=== PATIENT | male | born 1935 | race African-American/Black ===

== ENCOUNTER 2021-09-23 17:02 | Inpatient (IN) | payer OTHER ==
[~2021-09-23] VITALS: Ht 182.9 cm; Wt 91.2 kg
[2021-09-23 19:38] LABS: BG BASE EXCESS -7.6 mmol/L (-2.0-2.0); BG CARBOXYHEMOGLOBIN 0.3 % (0.5-1.5); BG DEOXYHEMOGLOBIN 3.9 % (0.0-5.0); BG FRACTION INSPIRED OXYGEN 40; BG HCO3 ACT 19.6 mmol/L (22.0-26.0); BG METHEMOGLOBIN 0.3 % (0.0-1.5); BG OXYGEN SATURATION 96.1 % (92.0-98.5); BG OXYHEMOGLOBIN 95.5 % (94.0-97.0); BG PCO2 45.6 mmHg (35.0-45.0); BG PH 7.251 (7.350-7.450); BG PO2 103.7 mmHg (75.0-100.0); BG SAMPLE SITE RIGHT RADIAL; BG TOTAL HEMOGLOBIN 15.8 g/dL (12.0-18.0); BG VENT MODE NASAL CANNULA
[2021-09-23 20:25] LABS: HEMATOCRIT. 48.3 % (42.0-52.0); HEMOGLOBIN. 15.8 g/dL (14.0-18.0); MEAN CORPUSCULAR HEMOGLOBIN 27.6 pg (28.0-32.0); MEAN CORPUSCULAR VOLUME 84.6 fL (80.0-94.0); MEAN PLATELET VOLUME 10.5 fl (7.4-10.4); PLATELET 130 x1000/uL (130-400); RED BLOOD CELL COUNT 5.71 mill/uL (4.7-6.1); RED CELL DISTRIBUTION WIDTH 16.1 % (11.6-14.6)
[2021-09-23 20:43] LABS: CHLORIDE 94 mEq/L (98-107)
[2021-09-23 20:48] LABS: ETHANOL BLOOD < 10 mg/dL
[2021-09-23 21:00] LABS: CLARITY URINE CLEAR (CLEAR); COLOR URINE DARK YELLOW (YELLOW); KETONES URINE NEGATIVE (NEGATIVE); LEUKOCYTE ESTERASE URINE NEGATIVE (NEGATIVE); NITRITE URINE NEGATIVE (NEGATIVE); OCCULT BLOOD URINE 3+ (NEGATIVE); PROTEIN URINE 2+ (NEGATIVE)
[2021-09-23 21:13] LABS: *AMPHETAMINES SCREEN URINE NEGATIVE (NEGATIVE); *BARBITURATES SCREEN URINE NEGATIVE (NEGATIVE); *BENZODIAZEPINES SCREEN URINE NEGATIVE (NEGATIVE); *COCAINE SCREEN URINE NEGATIVE (NEGATIVE); CANNABINOID URINE SCREEN NEGATIVE (NEGATIVE); PHENCYCLIDINE URINE SCREEN NEGATIVE (NEGATIVE)
[2021-09-23 21:14] LABS: METHADONE URINE SCREEN NEGATIVE (NEGATIVE); OPIATES URINE SCREEN NEGATIVE (NEGATIVE)
[2021-09-23] MEDS ORDERED: SODIUM CHLORIDE 0.9% 1,000 ML IV ONE (21:30)
[2021-09-23 21:44] LABS: PLATELET ESTIMATE NORMAL
[2021-09-23] MEDS ORDERED: ENOXAPARIN 80MG/0.8ML SYR SUBCUT SCH (21:45)
[2021-09-23] MEDS ORDERED: PIPERACILLIN/TAZ 3.375G PREMIX 50 ML IV NR (22:30)
[2021-09-23] MEDS ORDERED: VANCOMYCIN 1 G PREMIX 200 ML IV NR (23:00)
[2021-09-24] VITALS (25 sets, daily range): BP systolic 85–130; BP diastolic 30–63
[2021-09-24 00:35] LABS: CREATINE KINASE 21505 IU/L (39-308)
[2021-09-24] MEDS ORDERED: ACETAMINOPHEN 325MG TABLET PO PRN (02:00)
[2021-09-24] MEDS ORDERED: DOCUSATE SODIUM 100MG CAPSULE PO PRN (02:00)
[2021-09-24] MEDS ORDERED: ONDANSETRON HCL 4MG/2ML INJ IV PRN (02:00)
[2021-09-24] MEDS ORDERED: GUAIFENESIN 200MG/10ML SUGAR FREE UDC PO PRN (02:00)
[2021-09-24] MEDS ORDERED: SODIUM CHLORIDE 0.45% 1,000 ML IV SCH (02:00)
[2021-09-24] MEDS: MULTIVITAMINS,THER W-MINERALS TABLET PO SCH ×2 (02:00→09:00)
[2021-09-24] MEDS ORDERED: LORAZEPAM 2MG/ML CPJ IV PRN (02:00)
[2021-09-24] MEDS ORDERED: ENOXAPARIN 40MG/0.4ML SYR SUBCUT SCH (02:00)
[2021-09-24] MEDS ORDERED: HYDROCODONE/ACETAMINOPHEN 5/325MG TABLET PO PRN (02:00)
[2021-09-24] MEDS ORDERED: NOREPINEPHRINE 8MG/250ML PMX 250 ML IV PRN ×2 (07:45→19:45)
[2021-09-24] MEDS ORDERED: NOREPINEPHRINE 8 MG in DEXTROSE 5% WATER 250 ML IV PRN ×2 (08:00→20:00)
[2021-09-24] MEDS ORDERED: PROPOFOL 10MG/ML 100ML 100 ML IV ONE (08:15)
[2021-09-24] MEDS ORDERED: SUCCINYLCHOLINE CHLORIDE 200MG/10ML IV ONE (08:23)
[2021-09-24] MEDS ORDERED: ETOMIDATE 2MG/ML 10ML VIAL IV ONE (08:23)
[2021-09-24 08:46] LABS: BG BASE EXCESS -10.1 mmol/L (-2.0-2.0); BG CARBOXYHEMOGLOBIN 0.3 % (0.5-1.5); BG FRACTION INSPIRED OXYGEN 100; BG HCO3 ACT 17.8 mmol/L (22.0-26.0); BG OXYHEMOGLOBIN 97.7 % (94.0-97.0); BG PCO2 46.3 mmHg (35.0-45.0); BG PH 7.202 (7.350-7.450); BG PO2 324.3 mmHg (75.0-100.0); BG SAMPLE SITE RIGHT BRACHIAL
[2021-09-24] MEDS: ASPIRIN 81MG EC TABLET PO SCH (09:00)
[2021-09-24] MEDS: FOLIC ACID 1MG TABLET PO SCH (09:00)
[2021-09-24] MEDS: LISINOPRIL 20MG TABLET PO SCH (09:00)
[2021-09-24] MEDS ORDERED: LIDOCAINE HCL 1% 10 MG/ML 10ML VIAL ONE (10:58)
[2021-09-24] MEDS ORDERED: PANTOPRAZOLE SODIUM 40 MG/VIAL IV SCH (13:00)
[2021-09-24] MEDS: DEXT 5%/0.9% NACL 1,000 ML IV SCH (15:08)
[2021-09-24] MEDS: FUROSEMIDE 40MG/4ML VIAL IVP SCH (15:08)
[2021-09-24] MEDS: PIPERACILLIN/TAZOBACTAM 3.375 G in DEXTROSE 5% WATER 50 ML IV SCH (15:09)
[2021-09-24] MEDS ORDERED: SODIUM BICARBONATE 8.4% 1 MEQ/ML 50ML SYR IV NR (16:13)
[2021-09-24] MEDS ORDERED: SODIUM BICARBONATE 8.4% 1 MEQ/ML 50ML SYR IV SCH (16:30)
[2021-09-24 18:48] LABS: BG BASE EXCESS -6.8 mmol/L (-2.0-2.0); BG CARBOXYHEMOGLOBIN 0.3 % (0.5-1.5); BG DEOXYHEMOGLOBIN 3.6 % (0.0-5.0); BG FRACTION INSPIRED OXYGEN 60; BG HCO3 ACT 17.4 mmol/L (22.0-26.0); BG METHEMOGLOBIN 0.4 % (0.0-1.5); BG OXYGEN SATURATION 96.4 % (92.0-98.5); BG OXYHEMOGLOBIN 95.7 % (94.0-97.0); BG PCO2 31.2 mmHg (35.0-45.0); BG PH 7.364 (7.350-7.450); BG SAMPLE SITE LEFT RADIAL; BG TOTAL HEMOGLOBIN 14.1 g/dL (12.0-18.0); BG VENT MODE VENT - AC
[2021-09-24] MEDS: PROPOFOL 10MG/ML 100ML 100 ML IV PRN (19:53)
[2021-09-24 20:00] LABS: TOTAL IRON BINDING CAPACITY 328 ug/dL (250-450)
[2021-09-24 20:25] LABS: VITAMIN B12 SERUM >2000 pg/mL pg/mL (211-911)
[2021-09-24 20:54] LABS: FERRITIN 546 ng/mL (22-322)
[2021-09-25] VITALS (79 sets, daily range): BP systolic 78–124; BP diastolic 35–71
[2021-09-25] MEDS: PIPERACILLIN/TAZOBACTAM 3.375 G in DEXTROSE 5% WATER 50 ML IV SCH ×4 (00:45→21:39)
[2021-09-25 05:44] LABS: HEMATOCRIT. 40.2 % (42.0-52.0); HEMOGLOBIN. 13.1 g/dL (14.0-18.0); MEAN CORPUSCULAR HEMOGLOBIN 26.9 pg (28.0-32.0); MEAN CORPUSCULAR VOLUME 82.5 fL (80.0-94.0); MEAN PLATELET VOLUME 11.4 fl (7.4-10.4); PLATELET 129 x1000/uL (130-400); RED BLOOD CELL COUNT 4.88 mill/uL (4.7-6.1); RED CELL DISTRIBUTION WIDTH 16.5 % (11.6-14.6)
[2021-09-25] MEDS: DEXT 5%/0.9% NACL 1,000 ML IV SCH ×2 (05:46→21:39)
[2021-09-25] MEDS: PROPOFOL 10MG/ML 100ML 100 ML IV PRN (06:04)
[2021-09-25 06:06] LABS: CHLORIDE 98 mEq/L (98-107)
[2021-09-25 06:13] LABS: LDL CHOLESTEROL 43 mg/dL (5-100)
[2021-09-25 06:15] LABS: HDL CHOLESTEROL 29 mg/dL (40-59)
[2021-09-25 06:29] LABS: CREATINE KINASE 5699 IU/L (39-308)
[2021-09-25 07:59] LABS: PLATELET ESTIMATE NORMAL
[2021-09-25] MEDS ORDERED: ENOXAPARIN 30MG/0.3ML SYR SUBCUT SCH (09:00)
[2021-09-25] MEDS: FOLIC ACID 1MG TABLET PO SCH (09:00)
[2021-09-25] MEDS: LISINOPRIL 20MG TABLET PO SCH (09:00)
[2021-09-25] MEDS: PANTOPRAZOLE SODIUM 40 MG/VIAL IV SCH ×2 (09:00→18:39)
[2021-09-25] MEDS: MULTIVITAMINS,THER W-MINERALS TABLET PO SCH (09:00)
[2021-09-25] MEDS: ASPIRIN 81MG EC TABLET PO SCH (09:00)
[2021-09-25] MEDS: FUROSEMIDE 40MG/4ML VIAL IVP SCH (09:00)
[2021-09-25 09:49] LABS: BG BASE EXCESS -4.8 mmol/L (-2.0-2.0); BG CARBOXYHEMOGLOBIN 0.3 % (0.5-1.5); BG DEOXYHEMOGLOBIN 1.3 % (0.0-5.0); BG FRACTION INSPIRED OXYGEN 60; BG HCO3 ACT 20.1 mmol/L (22.0-26.0); BG METHEMOGLOBIN 0.3 % (0.0-1.5); BG OXYGEN SATURATION 98.7 % (92.0-98.5); BG OXYHEMOGLOBIN 98.1 % (94.0-97.0); BG PCO2 36.8 mmHg (35.0-45.0); BG PH 7.355 (7.350-7.450); BG SAMPLE SITE LEFT RADIAL; BG TOTAL HEMOGLOBIN 13.3 g/dL (12.0-18.0); BG TOTAL RESPIRATORY RATE 20 b/min; BG VENT MODE VENT - AC
[2021-09-25] MEDS ORDERED: FENTANYL CITRATE/PF 500 MCG in SODIUM CHLORIDE 0.9% 40 ML IV PRN (11:15)
[2021-09-25] MEDS ORDERED: NALOXONE HCL 0.4MG/ML VIAL IV PRN (11:30)
[2021-09-25 11:47] LABS: HEMATOCRIT 36.4 % (42.0-52.0); HEMOGLOBIN 12.1 g/dL (14.0-18.0)
[2021-09-25] MEDS: FERROUS SULFATE 325MG TABLET PO SCH ×2 (12:00→18:39)
[2021-09-25] MEDS ORDERED: BISACODYL 10MG SUPP PR PRN (13:30)
[2021-09-25 14:11] LABS: CREATINE KINASE MB FRACTION 117.1 ng/mL (0.5-3.6)
[2021-09-25 16:20] LABS: INR 1.4; PROTHROMBIN TIME 15.1 sec (9.6-11.0)
[2021-09-25] MEDS: FENTANYL CITRATE 2,500 MCG in SODIUM CHLORIDE 0.9% 200 ML IV PRN (19:05)
[2021-09-26] VITALS (74 sets, daily range): BP systolic 76–142; BP diastolic 43–96
[2021-09-26 06:17] LABS: HEMATOCRIT. 37.1 % (42.0-52.0); HEMOGLOBIN. 12.2 g/dL (14.0-18.0); MEAN CORPUSCULAR VOLUME 82.5 fL (80.0-94.0); MEAN PLATELET VOLUME 12.2 fl (7.4-10.4); PLATELET 103 x1000/uL (130-400); RED CELL DISTRIBUTION WIDTH 16.5 % (11.6-14.6)
[2021-09-26] MEDS: FERROUS SULFATE 325MG TABLET PO SCH ×3 (06:32→17:41)
[2021-09-26] MEDS: PIPERACILLIN/TAZOBACTAM 3.375 G in DEXTROSE 5% WATER 50 ML IV SCH ×3 (06:32→21:42)
[2021-09-26 08:35] LABS: NUCLEATED RED BLOOD CELLS 4 /100 WBC; PLATELET ESTIMATE SLIGHTLY DECREASED
[2021-09-26] MEDS ORDERED: FAMOTIDINE 20MG/2ML VIAL IV SCH (09:00)
[2021-09-26] MEDS: FUROSEMIDE 40MG/4ML VIAL IVP SCH (09:05)
[2021-09-26] MEDS: FAMOTIDINE 20MG/2ML VIAL IV SCH (09:05)
[2021-09-26] MEDS: FOLIC ACID 1MG TABLET PO SCH (09:05)
[2021-09-26] MEDS: MULTIVITAMINS,THER W-MINERALS TABLET PO SCH (09:05)
[2021-09-26 09:08] LABS: BG BASE EXCESS -3.9 mmol/L (-2.0-2.0); BG CARBOXYHEMOGLOBIN 0.3 % (0.5-1.5); BG FRACTION INSPIRED OXYGEN 40; BG HCO3 ACT 19.5 mmol/L (22.0-26.0); BG METHEMOGLOBIN 0.3 % (0.0-1.5); BG OXYHEMOGLOBIN 97.4 % (94.0-97.0); BG PCO2 30.7 mmHg (35.0-45.0); BG PH 7.421 (7.350-7.450); BG PO2 120.8 mmHg (75.0-100.0); BG SAMPLE SITE RIGHT RADIAL; BG TOTAL HEMOGLOBIN 12.5 g/dL (12.0-18.0); BG TOTAL RESPIRATORY RATE 16 b/min; BG VENT MODE VENT - AC
[2021-09-26] MEDS: ASPIRIN 81MG TABLET NG SCH (11:22)
[2021-09-26 11:39] LABS: BG BASE EXCESS -3.2 mmol/L (-2.0-2.0); BG CARBOXYHEMOGLOBIN 0.1 % (0.5-1.5); BG DEOXYHEMOGLOBIN 1.9 % (0.0-5.0); BG FRACTION INSPIRED OXYGEN 40; BG METHEMOGLOBIN 0.4 % (0.0-1.5); BG OXYGEN SATURATION 98.1 % (92.0-98.5); BG OXYHEMOGLOBIN 97.6 % (94.0-97.0); BG PCO2 26.5 mmHg (35.0-45.0); BG PH 7.474 (7.350-7.450); BG PO2 125.1 mmHg (75.0-100.0); BG SAMPLE SITE LEFT RADIAL; BG TOTAL HEMOGLOBIN 12.6 g/dL (12.0-18.0); BG TOTAL RESPIRATORY RATE 16 b/min; BG VENT MODE VENT - CPAP
[2021-09-26 13:24] LABS: CREATINE KINASE MB FRACTION 21.5 ng/mL (0.5-3.6)
[2021-09-26] MEDS: DEXT 5%/0.9% NACL 1,000 ML IV SCH (14:26)
[2021-09-27] VITALS (47 sets, daily range): BP systolic 106–170; BP diastolic 55–94
[2021-09-27] MEDS: PIPERACILLIN/TAZOBACTAM 3.375 G in DEXTROSE 5% WATER 50 ML IV SCH ×3 (06:03→20:52)
[2021-09-27] MEDS: FERROUS SULFATE 325MG TABLET PO SCH ×3 (06:04→17:22)
[2021-09-27 06:05] LABS: HEMATOCRIT. 35.2 % (42.0-52.0); HEMOGLOBIN. 11.7 g/dL (14.0-18.0); MEAN CORPUSCULAR HEMOGLOBIN 27.3 pg (28.0-32.0); MEAN CORPUSCULAR VOLUME 82.2 fL (80.0-94.0); MEAN PLATELET VOLUME 11.5 fl (7.4-10.4); PLATELET 103 x1000/uL (130-400); RED BLOOD CELL COUNT 4.28 mill/uL (4.7-6.1); RED CELL DISTRIBUTION WIDTH 16.5 % (11.6-14.6)
[2021-09-27] MEDS: DEXT 5%/0.9% NACL 1,000 ML IV SCH (08:12)
[2021-09-27] MEDS: MULTIVITAMINS,THER W-MINERALS TABLET PO SCH (08:12)
[2021-09-27] MEDS: FUROSEMIDE 40MG/4ML VIAL IVP SCH (08:12)
[2021-09-27] MEDS: ASPIRIN 81MG TABLET NG SCH (08:12)
[2021-09-27] MEDS: FOLIC ACID 1MG TABLET PO SCH (08:12)
[2021-09-27] MEDS: FAMOTIDINE 20MG/2ML VIAL IV SCH (08:13)
[2021-09-27] MEDS: KCL 20MEQ/100ML PREMIX 100 ML IV SCH ×2 (12:25→14:29)
[2021-09-27] MEDS: PANTOPRAZOLE SODIUM 40 MG/VIAL IV SCH ×2 (12:25→20:52)
[2021-09-27 14:29] LABS: NUCLEATED RED BLOOD CELLS 1 /100 WBC
[2021-09-27 14:32] LABS: PLATELET ESTIMATE DECREASED
[2021-09-27 23:50] LABS: HEMOGLOBIN 11.8 g/dL (14.0-18.0)
[2021-09-28] VITALS (31 sets, daily range): BP systolic 129–173; BP diastolic 58–103
[2021-09-28] MEDS: DEXT 5%/0.9% NACL 1,000 ML IV SCH (04:19)
[2021-09-28 06:01] LABS: HEMATOCRIT. 35.1 % (42.0-52.0); HEMOGLOBIN. 11.9 g/dL (14.0-18.0); MEAN CORPUSCULAR HEMOGLOBIN 27.9 pg (28.0-32.0); MEAN CORPUSCULAR VOLUME 82.5 fL (80.0-94.0); MEAN PLATELET VOLUME 11.5 fl (7.4-10.4); PLATELET 104 x1000/uL (130-400); RED BLOOD CELL COUNT 4.25 mill/uL (4.7-6.1); RED CELL DISTRIBUTION WIDTH 16.2 % (11.6-14.6)
[2021-09-28] MEDS: PIPERACILLIN/TAZOBACTAM 3.375 G in DEXTROSE 5% WATER 50 ML IV SCH ×3 (06:07→21:15)
[2021-09-28 08:05] LABS: BG BASE EXCESS 3.6 mmol/L (-2.0-2.0); BG CARBOXYHEMOGLOBIN 0.3 % (0.5-1.5); BG DEOXYHEMOGLOBIN 2.5 % (0.0-5.0); BG HCO3 ACT 28.4 mmol/L (22.0-26.0); BG METHEMOGLOBIN 0.1 % (0.0-1.5); BG OXYGEN SATURATION 97.5 % (92.0-98.5); BG OXYHEMOGLOBIN 97.1 % (94.0-97.0); BG PCO2 44.1 mmHg (35.0-45.0); BG PH 7.427 (7.350-7.450); BG PO2 110.4 mmHg (75.0-100.0); BG SAMPLE SITE RIGHT RADIAL; BG TOTAL RESPIRATORY RATE 16 b/min; BG VENT MODE VENT - SIMV
[2021-09-28] MEDS: PANTOPRAZOLE SODIUM 40 MG/VIAL IV SCH ×2 (08:36→21:15)
[2021-09-28] MEDS: FUROSEMIDE 40MG/4ML VIAL IVP SCH (08:36)
[2021-09-28] MEDS: FOLIC ACID 1MG TABLET PO SCH (08:37)
[2021-09-28] MEDS: ASPIRIN 81MG TABLET NG SCH (08:37)
[2021-09-28] MEDS: FERROUS SULFATE 325MG TABLET PO SCH ×3 (08:37→17:08)
[2021-09-28] MEDS: MULTIVITAMINS,THER W-MINERALS TABLET PO SCH (08:37)
[2021-09-28] MEDS ORDERED: KCL 20MEQ/100ML PREMIX 100 ML IV NR (09:00)
[2021-09-28 10:27] LABS: PLATELET ESTIMATE DECREASED
[2021-09-29] VITALS (96 sets, daily range): BP systolic 118–165; BP diastolic 56–116
[2021-09-29] MEDS: FENTANYL CITRATE 2,500 MCG in SODIUM CHLORIDE 0.9% 200 ML IV PRN (00:15)
[2021-09-29 05:51] LABS: HEMATOCRIT. 33.6 % (42.0-52.0); HEMOGLOBIN. 11.1 g/dL (14.0-18.0); MEAN CORPUSCULAR HEMOGLOBIN 26.9 pg (28.0-32.0); MEAN CORPUSCULAR VOLUME 81.2 fL (80.0-94.0); MEAN PLATELET VOLUME 10.7 fl (7.4-10.4); PLATELET 102 x1000/uL (130-400); RED BLOOD CELL COUNT 4.14 mill/uL (4.7-6.1); RED CELL DISTRIBUTION WIDTH 16.4 % (11.6-14.6)
[2021-09-29] MEDS: PIPERACILLIN/TAZOBACTAM 3.375 G in DEXTROSE 5% WATER 50 ML IV SCH (06:00)
[2021-09-29] MEDS: FERROUS SULFATE 325MG TABLET PO SCH ×3 (06:07→18:25)
[2021-09-29 07:27] LABS: NUCLEATED RED BLOOD CELLS 3 /100 WBC
[2021-09-29 07:28] LABS: PLATELET ESTIMATE DECREASED
[2021-09-29] MEDS ORDERED: POTASSIUM CHLORIDE 20MEQ/PACKET PO SCH (08:00)
[2021-09-29 09:04] LABS: BG BASE EXCESS 6.5 mmol/L (-2.0-2.0); BG CARBOXYHEMOGLOBIN 0.3 % (0.5-1.5); BG DEOXYHEMOGLOBIN 2.5 % (0.0-5.0); BG FRACTION INSPIRED OXYGEN 40; BG HCO3 ACT 32.7 mmol/L (22.0-26.0); BG METHEMOGLOBIN 0.1 % (0.0-1.5); BG OXYGEN SATURATION 97.5 % (92.0-98.5); BG OXYHEMOGLOBIN 97.1 % (94.0-97.0); BG PCO2 54.4 mmHg (35.0-45.0); BG PH 7.397 (7.350-7.450); BG PO2 111.8 mmHg (75.0-100.0); BG SAMPLE SITE RIGHT RADIAL; BG TOTAL HEMOGLOBIN 11.9 g/dL (12.0-18.0); BG VENT MODE VENT - SIMV
[2021-09-29] MEDS: FOLIC ACID 1MG TABLET PO SCH (09:22)
[2021-09-29] MEDS: MULTIVITAMINS,THER W-MINERALS TABLET PO SCH (09:22)
[2021-09-29] MEDS: FUROSEMIDE 20MG/2ML VIAL IVP SCH (09:22)
[2021-09-29] MEDS: PANTOPRAZOLE SODIUM 40 MG/VIAL IV SCH ×2 (09:22→21:26)
[2021-09-30] VITALS (97 sets, daily range): BP systolic 90–162; BP diastolic 52–83
[2021-09-30] MEDS: FENTANYL CITRATE 2,500 MCG in SODIUM CHLORIDE 0.9% 200 ML IV PRN (04:47)
[2021-09-30 05:53] LABS: HEMATOCRIT. 35.9 % (42.0-52.0); HEMOGLOBIN. 11.5 g/dL (14.0-18.0); MEAN CORPUSCULAR HEMOGLOBIN 26.8 pg (28.0-32.0); MEAN CORPUSCULAR VOLUME 83.8 fL (80.0-94.0); MEAN PLATELET VOLUME 10.7 fl (7.4-10.4); PLATELET 122 x1000/uL (130-400); RED BLOOD CELL COUNT 4.28 mill/uL (4.7-6.1); RED CELL DISTRIBUTION WIDTH 16.7 % (11.6-14.6)
[2021-09-30] MEDS: FERROUS SULFATE 325MG TABLET PO SCH ×3 (06:08→17:06)
[2021-09-30] MEDS ORDERED: METOPROLOL TARTRATE 5MG/5ML VIAL IV SCH (08:45)
[2021-09-30] MEDS: FUROSEMIDE 20MG/2ML VIAL IVP SCH (08:45)
[2021-09-30] MEDS: FOLIC ACID 1MG TABLET PO SCH (08:46)
[2021-09-30] MEDS: PANTOPRAZOLE SODIUM 40 MG/VIAL IV SCH ×2 (08:46→21:18)
[2021-09-30] MEDS: MULTIVITAMINS,THER W-MINERALS TABLET PO SCH (08:46)
[2021-09-30] MEDS: SODIUM CHLORIDE 0.45% 1,000 ML IV SCH ×2 (10:56→21:18)
[2021-09-30] MEDS: METOPROLOL TARTRATE 5MG/5ML VIAL IV PRN (11:26)
[2021-09-30 12:21] LABS: PLATELET ESTIMATE SLIGHTLY DECREASED
[2021-09-30 16:47] LABS: BG BASE EXCESS 8.5 mmol/L (-2.0-2.0); BG CARBOXYHEMOGLOBIN 0.2 % (0.5-1.5); BG DEOXYHEMOGLOBIN 2.9 % (0.0-5.0); BG HCO3 ACT 31.7 mmol/L (22.0-26.0); BG METHEMOGLOBIN 0.9 % (0.0-1.5); BG OXYGEN SATURATION 97.1 % (92.0-98.5); BG PCO2 38.4 mmHg (35.0-45.0); BG PH 7.534 (7.350-7.450); BG PO2 100.6 mmHg (75.0-100.0); BG TOTAL HEMOGLOBIN 11.5 g/dL (12.0-18.0)
[2021-09-30 16:57] LABS: BG SAMPLE SITE RIGHT RADIAL; BG TIDAL VOLUME(mL) 500 mL; BG VENT MODE VENT-AC; BG VENT RATE 16 set
[2021-09-30 16:58] LABS: BG TOTAL RESPIRATORY RATE 16 b/min
[2021-10-01] VITALS (87 sets, daily range): BP systolic 61–188; BP diastolic 23–129
[2021-10-01] MEDS: FENTANYL CITRATE/PF 2,500 MCG in SODIUM CHLORIDE 0.9% 200 ML IV PRN ×2 (00:56→22:15)
[2021-10-01 06:21] LABS: HEMATOCRIT. 35.5 % (42.0-52.0); HEMOGLOBIN. 11.4 g/dL (14.0-18.0); MEAN CORPUSCULAR HEMOGLOBIN 27.6 pg (28.0-32.0); MEAN CORPUSCULAR VOLUME 85.8 fL (80.0-94.0); MEAN PLATELET VOLUME 10.9 fl (7.4-10.4); PLATELET 119 x1000/uL (130-400); RED BLOOD CELL COUNT 4.14 mill/uL (4.7-6.1); RED CELL DISTRIBUTION WIDTH 17.2 % (11.6-14.6)
[2021-10-01] MEDS: FERROUS SULFATE 325MG TABLET PO SCH ×3 (06:27→16:39)
[2021-10-01] MEDS: SODIUM CHLORIDE 0.45% 1,000 ML IV SCH (06:27)
[2021-10-01 08:07] LABS: BG BASE EXCESS 6.7 mmol/L (-2.0-2.0); BG CARBOXYHEMOGLOBIN 0.3 % (0.5-1.5); BG DEOXYHEMOGLOBIN 2.1 % (0.0-5.0); BG HCO3 ACT 30.8 mmol/L (22.0-26.0); BG METHEMOGLOBIN 0.3 % (0.0-1.5); BG OXYGEN SATURATION 97.9 % (92.0-98.5); BG OXYHEMOGLOBIN 97.3 % (94.0-97.0); BG PH 7.483 (7.350-7.450); BG PO2 121.9 mmHg (75.0-100.0); BG SAMPLE SITE RIGHT RADIAL; BG TOTAL HEMOGLOBIN 10.8 g/dL (12.0-18.0); BG VENT MODE VENT - AC
[2021-10-01] MEDS: PANTOPRAZOLE SODIUM 40 MG/VIAL IV SCH ×2 (08:57→22:13)
[2021-10-01] MEDS: FUROSEMIDE 20MG/2ML VIAL IVP SCH (08:57)
[2021-10-01] MEDS: MULTIVITAMINS,THER W-MINERALS TABLET PO SCH (08:57)
[2021-10-01] MEDS: FOLIC ACID 1MG TABLET PO SCH (08:57)
[2021-10-01 09:36] LABS: PLATELET ESTIMATE DECREASED
[2021-10-01] MEDS: DEXTROSE 5% WATER 1,000 ML IV SCH ×2 (10:33→22:13)
[2021-10-01] MEDS: HYDRALAZINE 20MG/ML VIAL IV PRN (10:33)
[2021-10-01 14:33] LABS: BG BASE EXCESS 3.8 mmol/L (-2.0-2.0); BG CARBOXYHEMOGLOBIN 0.2 % (0.5-1.5); BG DEOXYHEMOGLOBIN 5.5 % (0.0-5.0); BG FRACTION INSPIRED OXYGEN 30; BG HCO3 ACT 29.1 mmol/L (22.0-26.0); BG METHEMOGLOBIN 0.3 % (0.0-1.5); BG OXYGEN SATURATION 94.5 % (92.0-98.5); BG PCO2 46.8 mmHg (35.0-45.0); BG PH 7.411 (7.350-7.450); BG PO2 76.5 mmHg (75.0-100.0); BG SAMPLE SITE LEFT RADIAL; BG TOTAL HEMOGLOBIN 11.6 g/dL (12.0-18.0); BG TOTAL RESPIRATORY RATE 8 b/min; BG VENT MODE VENT - SIMV
[2021-10-02] VITALS (71 sets, daily range): BP systolic 110–188; BP diastolic 52–123
[2021-10-02] MEDS: METOPROLOL TARTRATE 5MG/5ML VIAL IV PRN ×2 (01:50→09:37)
[2021-10-02 05:52] LABS: CHLORIDE 107 mEq/L (98-107)
[2021-10-02] MEDS: DEXTROSE 5% WATER 1,000 ML IV SCH (05:55)
[2021-10-02] MEDS: FERROUS SULFATE 325MG TABLET PO SCH ×3 (06:00→17:12)
[2021-10-02] MEDS: HYDRALAZINE 20MG/ML VIAL IV PRN (06:49)
[2021-10-02 09:25] LABS: BG BASE EXCESS 6.4 mmol/L (-2.0-2.0); BG CARBOXYHEMOGLOBIN 0.8 % (0.5-1.5); BG DEOXYHEMOGLOBIN 3.3 % (0.0-5.0); BG FRACTION INSPIRED OXYGEN 30; BG HCO3 ACT 32.6 mmol/L (22.0-26.0); BG METHEMOGLOBIN 0.3 % (0.0-1.5); BG OXYGEN SATURATION 96.7 % (92.0-98.5); BG OXYHEMOGLOBIN 95.6 % (94.0-97.0); BG PCO2 54.7 mmHg (35.0-45.0); BG PH 7.393 (7.350-7.450); BG PO2 89.4 mmHg (75.0-100.0); BG SAMPLE SITE RIGHT RADIAL; BG TOTAL HEMOGLOBIN 11.4 g/dL (12.0-18.0); BG VENT MODE VENT - SIMV
[2021-10-02] MEDS: FUROSEMIDE 20MG/2ML VIAL IVP SCH (09:37)
[2021-10-02] MEDS: MULTIVITAMINS,THER W-MINERALS TABLET PO SCH (09:37)
[2021-10-02] MEDS: FOLIC ACID 1MG TABLET PO SCH (09:37)
[2021-10-02] MEDS: PANTOPRAZOLE SODIUM 40 MG/VIAL IV SCH ×2 (09:37→21:12)
[2021-10-02] MEDS ORDERED: DOPAMINE 400MG/250ML PREMIX 250 ML IV PRN (11:15)
[2021-10-02] MEDS: FENTANYL CITRATE/PF 2,500 MCG in SODIUM CHLORIDE 0.9% 200 ML IV PRN (18:50)
[2021-10-02] MEDS: IPRATROPIUM BROMIDE (0.02%) 0.5MG/2.5ML NEB HHN SCH (20:40)
[2021-10-03] VITALS (81 sets, daily range): BP systolic 95–190; BP diastolic 30–124
[2021-10-03] MEDS: IPRATROPIUM BROMIDE (0.02%) 0.5MG/2.5ML NEB HHN SCH ×4 (04:13→20:20)
[2021-10-03 05:38] LABS: MEAN CORPUSCULAR HEMOGLOBIN 27.2 pg (28.0-32.0); MEAN CORPUSCULAR VOLUME 84.2 fL (80.0-94.0); RED BLOOD CELL COUNT 4.03 mill/uL (4.7-6.1)
[2021-10-03 05:50] LABS: CHLORIDE 108 mEq/L (98-107)
[2021-10-03 05:58] LABS: PHOSPHORUS 4.3 mg/dL (2.5-4.9)
[2021-10-03] MEDS: FERROUS SULFATE 325MG TABLET PO SCH ×3 (06:27→19:05)
[2021-10-03] MEDS: FENTANYL CITRATE/PF 2,500 MCG in SODIUM CHLORIDE 0.9% 200 ML IV PRN ×2 (07:43→22:14)
[2021-10-03 08:24] LABS: BG BASE EXCESS 4.8 mmol/L (-2.0-2.0); BG CARBOXYHEMOGLOBIN 0.3 % (0.5-1.5); BG DEOXYHEMOGLOBIN 5.7 % (0.0-5.0); BG HCO3 ACT 32.1 mmol/L (22.0-26.0); BG METHEMOGLOBIN 0.3 % (0.0-1.5); BG OXYGEN SATURATION 94.3 % (92.0-98.5); BG OXYHEMOGLOBIN 93.7 % (94.0-97.0); BG PCO2 61.7 mmHg (35.0-45.0); BG PH 7.334 (7.350-7.450); BG PO2 77.9 mmHg (75.0-100.0); BG SAMPLE SITE RIGHT RADIAL; BG TOTAL HEMOGLOBIN 11.5 g/dL (12.0-18.0); BG VENT MODE VENT - AC
[2021-10-03] MEDS ORDERED: MORPHINE SULFATE 2 MG/ML CPJ (NOT FOR IM USE) IV PRN (08:30)
[2021-10-03] MEDS ORDERED: NALOXONE HCL 0.4MG/ML VIAL IV PRN (08:30)
[2021-10-03] MEDS: PANTOPRAZOLE SODIUM 40 MG/VIAL IV SCH ×2 (08:38→21:03)
[2021-10-03] MEDS: FUROSEMIDE 20MG/2ML VIAL IVP SCH (08:38)
[2021-10-03] MEDS: FOLIC ACID 1MG TABLET PO SCH (08:38)
[2021-10-03] MEDS: MULTIVITAMINS,THER W-MINERALS TABLET PO SCH (08:38)
[2021-10-03] MEDS: METOPROLOL TARTRATE 5MG/5ML VIAL IV PRN ×2 (10:03→20:49)
[2021-10-03 11:53] LABS: PLATELET ESTIMATE NORMAL
[2021-10-03 11:54] LABS: MEAN PLATELET VOLUME 10.7 fl (7.4-10.4); PLATELET 217 x1000/uL (130-400)
[2021-10-03 13:12] LABS: INR 1.1; PARTIAL THROMBOPLASTIN TIME 31.3 sec (23.4-31.0); PROTHROMBIN TIME 11.5 sec (9.6-11.0)
[2021-10-03] MEDS ORDERED: LIDOCAINE HCL 1% 20ML VIAL (Pyxis) INJ ONE (13:27)
[2021-10-03] MEDS ORDERED: FUROSEMIDE 20MG/2ML VIAL IVP NR (14:00)
[2021-10-03] MEDS ORDERED: MIDAZOLAM HCL 2 MG/2 ML VIAL ONE (14:27)
[2021-10-03] MEDS ORDERED: FENTANYL CITRATE/PF 50MCG/ML 5ML VIAL ONE (15:23)
[2021-10-03] MEDS ORDERED: MIDAZOLAM HCL 5 MG/5 ML VIAL ONE (15:23)
[2021-10-03] MEDS ORDERED: DIGOXIN 500MCG/2ML AMP IV NR ×2 (15:34→16:45)
[2021-10-03 20:29] LABS: BG BASE EXCESS 5.9 mmol/L (-2.0-2.0); BG CARBOXYHEMOGLOBIN 0.3 % (0.5-1.5); BG DEOXYHEMOGLOBIN 0.9 % (0.0-5.0); BG FRACTION INSPIRED OXYGEN 100; BG HCO3 ACT 33.1 mmol/L (22.0-26.0); BG METHEMOGLOBIN 0.5 % (0.0-1.5); BG OXYGEN SATURATION 99.1 % (92.0-98.5); BG OXYHEMOGLOBIN 98.3 % (94.0-97.0); BG PCO2 61.5 mmHg (35.0-45.0); BG PH 7.349 (7.350-7.450); BG PO2 296.5 mmHg (75.0-100.0); BG SAMPLE SITE RIGHT RADIAL; BG TOTAL HEMOGLOBIN 11.6 g/dL (12.0-18.0); BG VENT MODE VENT - AC
[2021-10-03] MEDS: LORAZEPAM 2MG/ML CPJ IV PRN (21:03)
[2021-10-04] VITALS (88 sets, daily range): BP systolic 85–151; BP diastolic 46–108
[2021-10-04] MEDS: IPRATROPIUM BROMIDE (0.02%) 0.5MG/2.5ML NEB HHN SCH ×4 (00:24→20:27)
[2021-10-04] MEDS: DILTIAZEM HCL 125 MG in DEXT 5% WATER 100 ML IV PRN ×2 (01:06→21:47)
[2021-10-04 06:20] LABS: EOSINOPHILS % 1.9 % (0.0-5.0); HEMATOCRIT. 32.1 % (42.0-52.0); HEMOGLOBIN. 10.5 g/dL (14.0-18.0); LYMPHOCYTES % 7.8 % (20.0-50.0); MEAN CORPUSCULAR HEMOGLOBIN 27.6 pg (28.0-32.0); MEAN CORPUSCULAR VOLUME 84.1 fL (80.0-94.0); MEAN PLATELET VOLUME 10.3 fl (7.4-10.4); MONOCYTES % 10.1 % (2.0-8.0); NEUTROPHILS % 79.2 % (40.0-76.0); PLATELET 164 x1000/uL (130-400); RED BLOOD CELL COUNT 3.82 mill/uL (4.7-6.1); RED CELL DISTRIBUTION WIDTH 16.4 % (11.6-14.6)
[2021-10-04 06:26] LABS: CHLORIDE 107 mEq/L (98-107)
[2021-10-04] MEDS: PANTOPRAZOLE SODIUM 40 MG/VIAL IV SCH ×2 (08:49→20:54)
[2021-10-04] MEDS: FERROUS SULFATE 325MG TABLET PO SCH ×3 (08:49→17:25)
[2021-10-04] MEDS: MULTIVITAMINS,THER W-MINERALS TABLET PO SCH (08:50)
[2021-10-04] MEDS: FUROSEMIDE 20MG/2ML VIAL IVP SCH (08:50)
[2021-10-04] MEDS: FENTANYL CITRATE/PF 2,500 MCG in SODIUM CHLORIDE 0.9% 200 ML IV PRN ×2 (08:50→21:46)
[2021-10-04] MEDS: FOLIC ACID 1MG TABLET PO SCH (08:50)
[2021-10-04 09:06] LABS: BG BASE EXCESS 7.6 mmol/L (-2.0-2.0); BG CARBOXYHEMOGLOBIN 0.2 % (0.5-1.5); BG DEOXYHEMOGLOBIN 2.4 % (0.0-5.0); BG FRACTION INSPIRED OXYGEN 50; BG HCO3 ACT 34.8 mmol/L (22.0-26.0); BG METHEMOGLOBIN 0.3 % (0.0-1.5); BG OXYGEN SATURATION 97.6 % (92.0-98.5); BG OXYHEMOGLOBIN 97.1 % (94.0-97.0); BG PCO2 63.4 mmHg (35.0-45.0); BG PH 7.357 (7.350-7.450); BG PO2 110.5 mmHg (75.0-100.0); BG SAMPLE SITE LEFT RADIAL; BG TOTAL HEMOGLOBIN 10.7 g/dL (12.0-18.0); BG VENT MODE VENT - AC
[2021-10-04] MEDS: LORAZEPAM 2MG/ML CPJ IV PRN (12:49)
[2021-10-04] MEDS: METOPROLOL TARTRATE 5MG/5ML VIAL IV PRN (17:25)
[2021-10-05] VITALS (78 sets, daily range): BP systolic 94–169; BP diastolic 43–133
[2021-10-05] MEDS: IPRATROPIUM BROMIDE (0.02%) 0.5MG/2.5ML NEB HHN SCH ×4 (02:16→19:59)
[2021-10-05 06:40] LABS: BASOPHILS % 0.9 % (0.0-2.0); HEMATOCRIT. 29.4 % (42.0-52.0); HEMOGLOBIN. 9.9 g/dL (14.0-18.0); LYMPHOCYTES % 7.4 % (20.0-50.0); MEAN CORPUSCULAR HEMOGLOBIN 27.8 pg (28.0-32.0); MEAN CORPUSCULAR VOLUME 82.7 fL (80.0-94.0); MEAN PLATELET VOLUME 10.3 fl (7.4-10.4); MONOCYTES % 8.8 % (2.0-8.0); NEUTROPHILS % 78.9 % (40.0-76.0); PLATELET 105 x1000/uL (130-400); RED BLOOD CELL COUNT 3.55 mill/uL (4.7-6.1); RED CELL DISTRIBUTION WIDTH 16.6 % (11.6-14.6)
[2021-10-05] MEDS: DILTIAZEM HCL 125 MG in DEXT 5% WATER 100 ML IV PRN (07:59)
[2021-10-05] MEDS: FERROUS SULFATE 325MG TABLET PO SCH ×3 (08:00→18:52)
[2021-10-05] MEDS: PANTOPRAZOLE SODIUM 40 MG/VIAL IV SCH ×2 (08:00→21:13)
[2021-10-05] MEDS: FUROSEMIDE 20MG/2ML VIAL IVP SCH (08:00)
[2021-10-05] MEDS: FOLIC ACID 1MG TABLET PO SCH (08:00)
[2021-10-05] MEDS: MULTIVITAMINS,THER W-MINERALS TABLET PO SCH (08:00)
[2021-10-05 10:18] LABS: BG BASE EXCESS 9.9 mmol/L (-2.0-2.0); BG CARBOXYHEMOGLOBIN 0.3 % (0.5-1.5); BG DEOXYHEMOGLOBIN 3.6 % (0.0-5.0); BG FRACTION INSPIRED OXYGEN 40; BG HCO3 ACT 34.7 mmol/L (22.0-26.0); BG METHEMOGLOBIN 0.1 % (0.0-1.5); BG OXYGEN SATURATION 96.4 % (92.0-98.5); BG PCO2 48.5 mmHg (35.0-45.0); BG PH 7.473 (7.350-7.450); BG PO2 89.9 mmHg (75.0-100.0); BG SAMPLE SITE RIGHT RADIAL; BG TOTAL HEMOGLOBIN 10.3 g/dL (12.0-18.0); BG TOTAL RESPIRATORY RATE 18 b/min; BG VENT MODE VENT - AC
[2021-10-05] MEDS: FENTANYL CITRATE/PF 2,500 MCG in SODIUM CHLORIDE 0.9% 200 ML IV PRN (11:00)
[2021-10-06] VITALS (94 sets, daily range): BP systolic 100–182; BP diastolic 50–112
[2021-10-06] MEDS ORDERED: DEXTROSE 50% WATER 50ML SYRINGE IV PRN (00:45)
[2021-10-06] MEDS: IPRATROPIUM BROMIDE (0.02%) 0.5MG/2.5ML NEB HHN SCH ×4 (01:19→20:26)
[2021-10-06] MEDS: LORAZEPAM 2MG/ML CPJ IV PRN ×2 (02:54→03:02)
[2021-10-06] MEDS: FENTANYL CITRATE/PF 2,500 MCG in SODIUM CHLORIDE 0.9% 200 ML IV PRN (03:03)
[2021-10-06] MEDS: INSULIN LISPRO 100 UNITS/ML SUBCUT SCH ×3 (06:00→18:00)
[2021-10-06] MEDS: BLOOD SUGAR DIAGNOSTIC STRIP TEST SCH ×3 (06:00→18:28)
[2021-10-06 06:09] LABS: BASOPHILS % 0.4 % (0.0-2.0); EOSINOPHILS % 2.4 % (0.0-5.0); HEMATOCRIT. 28.7 % (42.0-52.0); HEMOGLOBIN. 9.4 g/dL (14.0-18.0); LYMPHOCYTES % 10.7 % (20.0-50.0); MEAN CORPUSCULAR VOLUME 82.6 fL (80.0-94.0); MEAN PLATELET VOLUME 10.7 fl (7.4-10.4); MONOCYTES % 10.3 % (2.0-8.0); NEUTROPHILS % 76.2 % (40.0-76.0); PLATELET 188 x1000/uL (130-400); RED BLOOD CELL COUNT 3.47 mill/uL (4.7-6.1); RED CELL DISTRIBUTION WIDTH 16.5 % (11.6-14.6)
[2021-10-06] MEDS: DILTIAZEM HCL 125 MG in DEXT 5% WATER 100 ML IV PRN (08:00)
[2021-10-06] MEDS: MULTIVITAMINS,THER W-MINERALS TABLET PO SCH (09:09)
[2021-10-06] MEDS: PANTOPRAZOLE SODIUM 40 MG/VIAL IV SCH (09:09)
[2021-10-06] MEDS: FERROUS SULFATE 325MG TABLET PO SCH ×3 (09:09→17:20)
[2021-10-06] MEDS: FUROSEMIDE 20MG/2ML VIAL IVP SCH (09:10)
[2021-10-06] MEDS: FOLIC ACID 1MG TABLET PO SCH (09:10)
[2021-10-06] MEDS: ACETYLCYSTEINE 100MG/ML 10% VIAL 4ML INH SCH ×2 (13:19→20:26)
[2021-10-06] MEDS ORDERED: SODIUM CHLORIDE 3% FOR INH 4ML UD NEB INH SCH (14:00)
[2021-10-06] MEDS: CEFEPIME 1,000 MG in DEXTROSE 5% WATER 50 ML IV SCH (14:16)
[2021-10-06 15:43] LABS: BG CARBOXYHEMOGLOBIN 0.3 % (0.5-1.5); BG DEOXYHEMOGLOBIN 4.2 % (0.0-5.0); BG FRACTION INSPIRED OXYGEN 40; BG HCO3 ACT 34.3 mmol/L (22.0-26.0); BG METHEMOGLOBIN 0.2 % (0.0-1.5); BG OXYGEN SATURATION 95.8 % (92.0-98.5); BG OXYHEMOGLOBIN 95.3 % (94.0-97.0); BG PCO2 51.1 mmHg (35.0-45.0); BG PH 7.445 (7.350-7.450); BG PO2 87.1 mmHg (75.0-100.0); BG TOTAL HEMOGLOBIN 10.6 g/dL (12.0-18.0); BG VENT MODE VENT - CPAP
[2021-10-06] MEDS: METHYLPREDNISOLONE SOD SUCC 125 MG/2 ML VIAL IV SCH (17:20)
[2021-10-06] MEDS ORDERED: AMIODARONE HCL 150 MG in DEXT 5% WATER 100 ML IV ONE (18:00)
[2021-10-06] MEDS: AMIODARONE HCL 900 MG in DEXT 5% WATER 482 ML IV PRN (18:28)
[2021-10-07] VITALS (86 sets, daily range): BP systolic 102–210; BP diastolic 52–136
[2021-10-07] MEDS: BLOOD SUGAR DIAGNOSTIC STRIP TEST SCH ×5 (00:46→23:59)
[2021-10-07] MEDS: METHYLPREDNISOLONE SOD SUCC 125 MG/2 ML VIAL IV SCH ×5 (00:46→23:59)
[2021-10-07] MEDS: PANTOPRAZOLE SODIUM 40 MG/VIAL IV SCH ×3 (00:50→21:07)
[2021-10-07] MEDS: IPRATROPIUM BROMIDE (0.02%) 0.5MG/2.5ML NEB HHN SCH ×4 (01:36→20:05)
[2021-10-07] MEDS: FENTANYL CITRATE/PF 2,500 MCG in SODIUM CHLORIDE 0.9% 200 ML IV PRN (06:15)
[2021-10-07] MEDS: INSULIN LISPRO 100 UNITS/ML SUBCUT SCH ×4 (06:16→18:00)
[2021-10-07 06:21] LABS: HEMATOCRIT. 30.1 % (42.0-52.0); HEMOGLOBIN. 9.8 g/dL (14.0-18.0); MEAN PLATELET VOLUME 10.4 fl (7.4-10.4); PLATELET 214 x1000/uL (130-400); RED BLOOD CELL COUNT 3.62 mill/uL (4.7-6.1); RED CELL DISTRIBUTION WIDTH 16.4 % (11.6-14.6)
[2021-10-07] MEDS: ACETYLCYSTEINE 100MG/ML 10% VIAL 4ML INH SCH ×2 (09:13→16:47)
[2021-10-07] MEDS: FERROUS SULFATE 325MG TABLET PO SCH ×3 (09:25→18:58)
[2021-10-07] MEDS: FUROSEMIDE 20MG/2ML VIAL IVP SCH (09:26)
[2021-10-07] MEDS: FOLIC ACID 1MG TABLET PO SCH (09:26)
[2021-10-07] MEDS: MULTIVITAMINS,THER W-MINERALS TABLET PO SCH (09:26)
[2021-10-07 11:34] LABS: BG BASE EXCESS 7.5 mmol/L (-2.0-2.0); BG CARBOXYHEMOGLOBIN 0.3 % (0.5-1.5); BG DEOXYHEMOGLOBIN 4.5 % (0.0-5.0); BG FRACTION INSPIRED OXYGEN 40; BG HCO3 ACT 33.7 mmol/L (22.0-26.0); BG METHEMOGLOBIN 0.3 % (0.0-1.5); BG OXYGEN SATURATION 95.5 % (92.0-98.5); BG OXYHEMOGLOBIN 94.9 % (94.0-97.0); BG PCO2 55.7 mmHg (35.0-45.0); BG PO2 84.9 mmHg (75.0-100.0); BG SAMPLE SITE RIGHT RADIAL; BG TOTAL HEMOGLOBIN 11.3 g/dL (12.0-18.0); BG VENT MODE VENT - CPAP
[2021-10-07] MEDS: CEFEPIME 1,000 MG in DEXTROSE 5% WATER 50 ML IV SCH (13:08)
[2021-10-07 14:23] LABS: PLATELET ESTIMATE NORMAL
[2021-10-07] MEDS: AMIODARONE HCL 900 MG in DEXT 5% WATER 482 ML IV PRN (16:31)
[2021-10-08] VITALS (58 sets, daily range): BP systolic 36–198; BP diastolic 15–117
[2021-10-08] MEDS ORDERED: FENTANYL CITRATE/PF 2,500 MCG in SODIUM CHLORIDE 0.9% 200 ML IV PRN ×2 (01:45→03:00)
[2021-10-08] MEDS: IPRATROPIUM BROMIDE (0.02%) 0.5MG/2.5ML NEB HHN SCH ×4 (02:05→20:45)
[2021-10-08] MEDS: ACETYLCYSTEINE 100MG/ML 10% VIAL 4ML INH SCH ×4 (02:05→21:30)
[2021-10-08] MEDS: HYDRALAZINE 20MG/ML VIAL IV PRN ×2 (04:40→17:57)
[2021-10-08] MEDS: INSULIN LISPRO 100 UNITS/ML SUBCUT SCH ×5 (05:34→23:59)
[2021-10-08] MEDS: METHYLPREDNISOLONE SOD SUCC 125 MG/2 ML VIAL IV SCH ×4 (05:34→23:59)
[2021-10-08] MEDS: BLOOD SUGAR DIAGNOSTIC STRIP TEST SCH ×4 (05:34→23:59)
[2021-10-08 05:43] LABS: HEMOGLOBIN. 10.6 g/dL (14.0-18.0); MEAN CORPUSCULAR HEMOGLOBIN 27.3 pg (28.0-32.0); MEAN CORPUSCULAR VOLUME 82.7 fL (80.0-94.0); MEAN PLATELET VOLUME 10.6 fl (7.4-10.4); PLATELET 265 x1000/uL (130-400); RED BLOOD CELL COUNT 3.87 mill/uL (4.7-6.1); RED CELL DISTRIBUTION WIDTH 16.6 % (11.6-14.6)
[2021-10-08] MEDS: PANTOPRAZOLE SODIUM 40 MG/VIAL IV SCH ×2 (08:56→20:36)
[2021-10-08] MEDS: FOLIC ACID 1MG TABLET PO SCH (08:57)
[2021-10-08] MEDS: FUROSEMIDE 20MG/2ML VIAL IVP SCH (08:57)
[2021-10-08] MEDS: MULTIVITAMINS,THER W-MINERALS TABLET PO SCH (08:57)
[2021-10-08] MEDS: FERROUS SULFATE 325MG TABLET PO SCH ×3 (08:57→17:57)
[2021-10-08 10:53] LABS: PLATELET ESTIMATE NORMAL
[2021-10-08 12:44] LABS: BG BASE EXCESS 4.7 mmol/L (-2.0-2.0); BG CARBOXYHEMOGLOBIN 0.3 % (0.5-1.5); BG DEOXYHEMOGLOBIN 4.3 % (0.0-5.0); BG FRACTION INSPIRED OXYGEN 40; BG HCO3 ACT 29.4 mmol/L (22.0-26.0); BG OXYGEN SATURATION 95.7 % (92.0-98.5); BG OXYHEMOGLOBIN 95.4 % (94.0-97.0); BG PCO2 44.1 mmHg (35.0-45.0); BG PH 7.442 (7.350-7.450); BG SAMPLE SITE RIGHT RADIAL; BG TOTAL HEMOGLOBIN 11.2 g/dL (12.0-18.0); BG VENT MODE VENT - CPAP
[2021-10-08] MEDS: CEFEPIME 1,000 MG in DEXTROSE 5% WATER 50 ML IV SCH (14:00)
[2021-10-08] MEDS: METOPROLOL TARTRATE 5MG/5ML VIAL IV PRN (14:02)
[2021-10-08] MEDS ORDERED: RACEPINEPHRINE 2.25% 0.5ML NEB VIAL HHN NR (17:00)
[2021-10-08 18:00] LABS: BG BASE EXCESS 5.1 mmol/L (-2.0-2.0); BG CARBOXYHEMOGLOBIN 0.2 % (0.5-1.5); BG DEOXYHEMOGLOBIN 2.6 % (0.0-5.0); BG FRACTION INSPIRED OXYGEN 50; BG METHEMOGLOBIN 0.2 % (0.0-1.5); BG OXYGEN SATURATION 97.4 % (92.0-98.5); BG PCO2 39.9 mmHg (35.0-45.0); BG PH 7.479 (7.350-7.450); BG PO2 107.2 mmHg (75.0-100.0); BG TOTAL HEMOGLOBIN 10.8 g/dL (12.0-18.0); BG TOTAL RESPIRATORY RATE 23 b/min; BG VENT MODE MASK - BIPAP
[2021-10-09] VITALS (82 sets, daily range): BP systolic 38–259; BP diastolic 26–152
[2021-10-09] MEDS: IPRATROPIUM BROMIDE (0.02%) 0.5MG/2.5ML NEB HHN SCH ×4 (00:32→20:35)
[2021-10-09] MEDS: HYDRALAZINE 20MG/ML VIAL IV PRN ×2 (03:56→14:09)
[2021-10-09] MEDS: METHYLPREDNISOLONE SOD SUCC 125 MG/2 ML VIAL IV SCH ×3 (05:39→16:49)
[2021-10-09] MEDS: METOPROLOL TARTRATE 5MG/5ML VIAL IV PRN ×2 (05:40→16:42)
[2021-10-09] MEDS: INSULIN LISPRO 100 UNITS/ML SUBCUT SCH ×4 (06:00→21:00)
[2021-10-09] MEDS: BLOOD SUGAR DIAGNOSTIC STRIP TEST SCH ×4 (06:00→21:32)
[2021-10-09 06:01] LABS: HEMATOCRIT. 30.6 % (42.0-52.0); HEMOGLOBIN. 10.4 g/dL (14.0-18.0); MEAN CORPUSCULAR HEMOGLOBIN 28.2 pg (28.0-32.0); MEAN CORPUSCULAR VOLUME 82.6 fL (80.0-94.0); MEAN PLATELET VOLUME 10.4 fl (7.4-10.4); PLATELET 254 x1000/uL (130-400); RED CELL DISTRIBUTION WIDTH 16.8 % (11.6-14.6)
[2021-10-09] MEDS: ACETYLCYSTEINE 100MG/ML 10% VIAL 4ML INH SCH ×2 (07:48→14:26)
[2021-10-09 08:52] LABS: BG BASE EXCESS 7.5 mmol/L (-2.0-2.0); BG CARBOXYHEMOGLOBIN 0.3 % (0.5-1.5); BG DEOXYHEMOGLOBIN 7.7 % (0.0-5.0); BG FRACTION INSPIRED OXYGEN 40; BG HCO3 ACT 31.3 mmol/L (22.0-26.0); BG METHEMOGLOBIN 0.3 % (0.0-1.5); BG OXYGEN SATURATION 92.3 % (92.0-98.5); BG OXYHEMOGLOBIN 91.7 % (94.0-97.0); BG PH 7.501 (7.350-7.450); BG TOTAL HEMOGLOBIN 10.2 g/dL (12.0-18.0); BG VENT MODE MASK - BIPAP
[2021-10-09 09:25] LABS: PLATELET ESTIMATE NORMAL
[2021-10-09] MEDS: FERROUS SULFATE 325MG TABLET PO SCH ×4 (09:47→18:02)
[2021-10-09] MEDS: MULTIVITAMINS,THER W-MINERALS TABLET PO SCH ×2 (09:47→10:47)
[2021-10-09] MEDS: FOLIC ACID 1MG TABLET PO SCH ×2 (09:47→10:47)
[2021-10-09] MEDS: FUROSEMIDE 20MG/2ML VIAL IVP SCH (09:47)
[2021-10-09] MEDS: PANTOPRAZOLE SODIUM 40 MG/VIAL IV SCH ×2 (09:47→21:28)
[2021-10-09] MEDS ORDERED: HYDRALAZINE HCL 100MG TABLET PO SCH ×2 (13:30→18:45)
[2021-10-09] MEDS: CEFEPIME 1,000 MG in DEXTROSE 5% WATER 50 ML IV SCH (14:10)
[2021-10-09] MEDS ORDERED: NITROGLYCERIN OINT 1GM/INCH UDPKT TD SCH (16:43)
[2021-10-09] MEDS: HYDRALAZINE HCL 100MG TABLET PO SCH ×2 (20:00→22:52)
[2021-10-09] MEDS: LORAZEPAM 2MG/ML CPJ IV PRN (20:00)
[2021-10-09] MEDS: MORPHINE SULFATE 2 MG/ML CPJ (NOT FOR IM USE) IV PRN (20:02)
[2021-10-09] MEDS: AMLODIPINE 10MG TABLET PO SCH (21:28)
[2021-10-09] MEDS: NITROGLYCERIN OINT 1GM/INCH UDPKT TD SCH (22:53)
[2021-10-10] VITALS (75 sets, daily range): BP systolic 140–216; BP diastolic 43–140
[2021-10-10] MEDS: METHYLPREDNISOLONE SOD SUCC 125 MG/2 ML VIAL IV SCH ×2 (00:19→06:18)
[2021-10-10] MEDS: METOPROLOL TARTRATE 5MG/5ML VIAL IV PRN ×2 (01:16→08:04)
[2021-10-10] MEDS: LORAZEPAM 2MG/ML CPJ IV PRN (02:18)
[2021-10-10] MEDS: MORPHINE SULFATE 2 MG/ML CPJ (NOT FOR IM USE) IV PRN (02:19)
[2021-10-10] MEDS: IPRATROPIUM BROMIDE (0.02%) 0.5MG/2.5ML NEB HHN SCH ×4 (04:31→20:59)
[2021-10-10] MEDS: ACETYLCYSTEINE 100MG/ML 10% VIAL 4ML INH SCH ×3 (04:31→15:44)
[2021-10-10] MEDS: HYDRALAZINE HCL 100MG TABLET PO SCH ×3 (06:19→21:32)
[2021-10-10] MEDS: BLOOD SUGAR DIAGNOSTIC STRIP TEST SCH ×4 (06:19→21:38)
[2021-10-10] MEDS: NITROGLYCERIN OINT 1GM/INCH UDPKT TD SCH ×2 (06:19→14:12)
[2021-10-10] MEDS: INSULIN LISPRO 100 UNITS/ML SUBCUT SCH ×4 (06:19→21:00)
[2021-10-10 06:40] LABS: BASOPHILS % 0.2 % (0.0-2.0); HEMATOCRIT. 26.1 % (42.0-52.0); HEMOGLOBIN. 8.5 g/dL (14.0-18.0); LYMPHOCYTES % 7.8 % (20.0-50.0); MEAN CORPUSCULAR HEMOGLOBIN 27.1 pg (28.0-32.0); MEAN CORPUSCULAR VOLUME 83.1 fL (80.0-94.0); MONOCYTES % 12.2 % (2.0-8.0); NEUTROPHILS % 79.8 % (40.0-76.0); PLATELET 252 x1000/uL (130-400); RED BLOOD CELL COUNT 3.14 mill/uL (4.7-6.1); RED CELL DISTRIBUTION WIDTH 16.5 % (11.6-14.6)
[2021-10-10] MEDS: FUROSEMIDE 20MG/2ML VIAL IVP SCH (08:04)
[2021-10-10] MEDS: PANTOPRAZOLE SODIUM 40 MG/VIAL IV SCH ×2 (08:04→21:32)
[2021-10-10] MEDS: FERROUS SULFATE 325MG TABLET PO SCH ×3 (08:20→17:18)
[2021-10-10] MEDS: HYDRALAZINE 20MG/ML VIAL IV PRN ×2 (08:51→18:45)
[2021-10-10] MEDS: FOLIC ACID 1MG TABLET PO SCH (09:00)
[2021-10-10] MEDS: MULTIVITAMINS,THER W-MINERALS TABLET PO SCH (09:00)
[2021-10-10] MEDS: AMLODIPINE 10MG TABLET PO SCH ×2 (09:00→21:33)
[2021-10-10] MEDS: DEXTROSE 5% WATER 1,000 ML IV SCH ×2 (09:41→17:52)
[2021-10-10] MEDS ORDERED: METOPROLOL TARTRATE 5MG/5ML VIAL IV NR (09:45)
[2021-10-10] MEDS ORDERED: HYDRALAZINE 20MG/ML VIAL IV SCH (12:45)
[2021-10-10] MEDS: CEFEPIME 1,000 MG in DEXTROSE 5% WATER 50 ML IV SCH (14:13)
[2021-10-10] MEDS: NITROGLYCERIN 50MG PREMIX 250 ML IV PRN (16:12)
[2021-10-10] MEDS: METHYLPREDNISOLONE SOD SUCC 40 MG/ML VIAL IV SCH (17:51)
[2021-10-11] VITALS (79 sets, daily range): BP systolic 80–224; BP diastolic 20–156
[2021-10-11] MEDS: NITROGLYCERIN 50MG PREMIX 250 ML IV PRN ×2 (02:13→12:08)
[2021-10-11] MEDS: IPRATROPIUM BROMIDE (0.02%) 0.5MG/2.5ML NEB HHN SCH ×4 (02:24→20:28)
[2021-10-11] MEDS: ACETYLCYSTEINE 100MG/ML 10% VIAL 4ML INH SCH ×3 (02:24→14:21)
[2021-10-11] MEDS: HYDRALAZINE HCL 100MG TABLET PO SCH ×3 (06:00→21:13)
[2021-10-11 06:07] LABS: HEMATOCRIT. 24.3 % (42.0-52.0); HEMOGLOBIN. 8.5 g/dL (14.0-18.0); MEAN CORPUSCULAR HEMOGLOBIN 28.8 pg (28.0-32.0); MEAN CORPUSCULAR VOLUME 82.7 fL (80.0-94.0); MEAN PLATELET VOLUME 10.3 fl (7.4-10.4); PLATELET 264 x1000/uL (130-400); RED BLOOD CELL COUNT 2.94 mill/uL (4.7-6.1); RED CELL DISTRIBUTION WIDTH 16.6 % (11.6-14.6)
[2021-10-11] MEDS: DEXTROSE 5% WATER 1,000 ML IV SCH ×2 (06:14→18:21)
[2021-10-11] MEDS: BLOOD SUGAR DIAGNOSTIC STRIP TEST SCH ×4 (06:15→21:00)
[2021-10-11] MEDS: INSULIN LISPRO 100 UNITS/ML SUBCUT SCH ×4 (06:15→21:00)
[2021-10-11] MEDS: FERROUS SULFATE 325MG TABLET PO SCH ×3 (08:20→18:20)
[2021-10-11 08:45] LABS: BG BASE EXCESS 10.7 mmol/L (-2.0-2.0); BG CARBOXYHEMOGLOBIN 0.3 % (0.5-1.5); BG DEOXYHEMOGLOBIN 0.8 % (0.0-5.0); BG FRACTION INSPIRED OXYGEN 70; BG HCO3 ACT 34.4 mmol/L (22.0-26.0); BG METHEMOGLOBIN 0.5 % (0.0-1.5); BG OXYGEN SATURATION 99.2 % (92.0-98.5); BG OXYHEMOGLOBIN 98.4 % (94.0-97.0); BG PCO2 41.9 mmHg (35.0-45.0); BG PH 7.532 (7.350-7.450); BG PO2 257.1 mmHg (75.0-100.0); BG SAMPLE SITE RIGHT RADIAL; BG TOTAL HEMOGLOBIN 9.2 g/dL (12.0-18.0); BG VENT MODE MASK - BIPAP
[2021-10-11] MEDS: FOLIC ACID 1MG TABLET PO SCH (09:00)
[2021-10-11] MEDS: AMLODIPINE 10MG TABLET PO SCH ×2 (09:00→21:14)
[2021-10-11] MEDS: MULTIVITAMINS,THER W-MINERALS TABLET PO SCH (09:00)
[2021-10-11] MEDS: METHYLPREDNISOLONE SOD SUCC 40 MG/ML VIAL IV SCH ×2 (09:47→18:20)
[2021-10-11] MEDS: PANTOPRAZOLE SODIUM 40 MG/VIAL IV SCH ×2 (09:48→21:13)
[2021-10-11] MEDS: FUROSEMIDE 40MG/4ML VIAL IVP SCH (09:48)
[2021-10-11 11:56] LABS: INR 1.2
[2021-10-11] MEDS: HYDRALAZINE 20MG/ML VIAL IV PRN (12:56)
[2021-10-11] MEDS: CEFEPIME 1,000 MG in DEXTROSE 5% WATER 50 ML IV SCH (14:55)
[2021-10-11 16:51] LABS: PLATELET ESTIMATE NORMAL
[2021-10-12] VITALS (82 sets, daily range): BP systolic 50–217; BP diastolic 26–168
[2021-10-12] MEDS: IPRATROPIUM BROMIDE (0.02%) 0.5MG/2.5ML NEB HHN SCH ×4 (01:51→20:08)
[2021-10-12] MEDS: NITROGLYCERIN 50MG PREMIX 250 ML IV PRN ×2 (05:30→23:48)
[2021-10-12] MEDS: HYDRALAZINE HCL 100MG TABLET PO SCH ×3 (06:00→22:00)
[2021-10-12 06:30] LABS: BASOPHILS % 0.4 % (0.0-2.0); EOSINOPHILS % 0.3 % (0.0-5.0); HEMATOCRIT. 27.9 % (42.0-52.0); HEMOGLOBIN. 9.4 g/dL (14.0-18.0); MEAN CORPUSCULAR HEMOGLOBIN 28.1 pg (28.0-32.0); MEAN CORPUSCULAR VOLUME 83.2 fL (80.0-94.0); MEAN PLATELET VOLUME 10.9 fl (7.4-10.4); MONOCYTES % 11.3 % (2.0-8.0); PLATELET 223 x1000/uL (130-400); RED BLOOD CELL COUNT 3.35 mill/uL (4.7-6.1); RED CELL DISTRIBUTION WIDTH 16.1 % (11.6-14.6)
[2021-10-12 07:23] LABS: CHLORIDE 107 mEq/L (98-107)
[2021-10-12 07:28] LABS: PHOSPHORUS 3.1 mg/dL (2.5-4.9)
[2021-10-12] MEDS: INSULIN LISPRO 100 UNITS/ML SUBCUT SCH ×4 (07:50→21:00)
[2021-10-12] MEDS: BLOOD SUGAR DIAGNOSTIC STRIP TEST SCH ×4 (07:50→21:00)
[2021-10-12] MEDS: POTASSIUM CHLORIDE 20MEQ/PACKET PO SCH ×2 (08:30→09:36)
[2021-10-12] MEDS: PANTOPRAZOLE SODIUM 40 MG/VIAL IV SCH ×2 (09:12→21:44)
[2021-10-12] MEDS: FUROSEMIDE 40MG/4ML VIAL IVP SCH (09:12)
[2021-10-12] MEDS: FOLIC ACID 1MG TABLET PO SCH (09:13)
[2021-10-12] MEDS: FERROUS SULFATE 325MG TABLET PO SCH ×3 (09:13→19:14)
[2021-10-12] MEDS: AMLODIPINE 10MG TABLET PO SCH ×2 (09:13→21:00)
[2021-10-12] MEDS: MULTIVITAMINS,THER W-MINERALS TABLET PO SCH (09:13)
[2021-10-12] MEDS: METHYLPREDNISOLONE SOD SUCC 40 MG/ML VIAL IV SCH (09:36)
[2021-10-12] MEDS: GUAIFENESIN 200MG/10ML SUGAR FREE UDC PO SCH ×2 (10:47→18:09)
[2021-10-12] MEDS ORDERED: POTASSIUM CHLORIDE 20MEQ TABLET SR PO SCH (11:00)
[2021-10-12] MEDS: ISOSORBIDE MONONITRATE 60MG TABLET SR 24HR PO SCH ×3 (11:30→13:15)
[2021-10-12] MEDS: HYDRALAZINE 20MG/ML VIAL IV PRN (20:46)
[2021-10-12] MEDS: LORAZEPAM 2MG/ML CPJ IV PRN (21:18)
[2021-10-13] VITALS (94 sets, daily range): BP systolic 99–180; BP diastolic 55–115
[2021-10-13] MEDS: IPRATROPIUM BROMIDE (0.02%) 0.5MG/2.5ML NEB HHN SCH ×4 (00:38→20:10)
[2021-10-13] MEDS: HYDRALAZINE 20MG/ML VIAL IV PRN ×2 (04:50→12:18)
[2021-10-13 05:52] LABS: BASOPHILS % 0.3 % (0.0-2.0); EOSINOPHILS % 4.9 % (0.0-5.0); HEMATOCRIT. 29.6 % (42.0-52.0); HEMOGLOBIN. 9.8 g/dL (14.0-18.0); LYMPHOCYTES % 15.6 % (20.0-50.0); MEAN CORPUSCULAR HEMOGLOBIN 27.2 pg (28.0-32.0); MEAN CORPUSCULAR VOLUME 82.3 fL (80.0-94.0); MEAN PLATELET VOLUME 10.5 fl (7.4-10.4); MONOCYTES % 13.1 % (2.0-8.0); NEUTROPHILS % 66.1 % (40.0-76.0); PLATELET 261 x1000/uL (130-400); RED BLOOD CELL COUNT 3.59 mill/uL (4.7-6.1); RED CELL DISTRIBUTION WIDTH 16.3 % (11.6-14.6)
[2021-10-13 05:58] LABS: CHLORIDE 109 mEq/L (98-107)
[2021-10-13 06:04] LABS: PHOSPHORUS 2.8 mg/dL (2.5-4.9)
[2021-10-13] MEDS: GUAIFENESIN 200MG/10ML SUGAR FREE UDC PO SCH ×4 (06:50→18:16)
[2021-10-13] MEDS: HYDRALAZINE HCL 100MG TABLET PO SCH ×3 (06:51→21:33)
[2021-10-13] MEDS: BLOOD SUGAR DIAGNOSTIC STRIP TEST SCH ×4 (07:50→21:35)
[2021-10-13] MEDS: INSULIN LISPRO 100 UNITS/ML SUBCUT SCH ×4 (07:50→21:00)
[2021-10-13] MEDS ORDERED: METHYLPREDNISOLONE SOD SUCC 40 MG/ML VIAL IV SCH (09:00)
[2021-10-13] MEDS: POTASSIUM CHLORIDE 20MEQ/PACKET PO SCH (09:24)
[2021-10-13] MEDS: FERROUS SULFATE 325MG TABLET PO SCH ×3 (09:24→18:16)
[2021-10-13] MEDS: ISOSORBIDE MONONITRATE 60MG TABLET SR 24HR PO SCH (09:25)
[2021-10-13] MEDS: FUROSEMIDE 40MG/4ML VIAL IVP SCH (09:25)
[2021-10-13] MEDS: PANTOPRAZOLE SODIUM 40 MG/VIAL IV SCH ×2 (09:25→21:34)
[2021-10-13] MEDS: AMLODIPINE 10MG TABLET PO SCH ×2 (09:25→21:33)
[2021-10-13] MEDS: FOLIC ACID 1MG TABLET PO SCH (09:25)
[2021-10-13] MEDS: MULTIVITAMINS,THER W-MINERALS TABLET PO SCH (09:25)
[2021-10-13] MEDS: NITROGLYCERIN 50MG PREMIX 250 ML IV PRN (09:29)
[2021-10-13] MEDS: LOSARTAN POTASSIUM 100 MG TABLET PO SCH (11:15)
[2021-10-13] MEDS ORDERED: ISOSORBIDE MONONITRATE 30MG TABLET SR 24HR PO SCH (13:45)
[2021-10-14] VITALS (84 sets, daily range): BP systolic 79–182; BP diastolic 21–124
[2021-10-14] MEDS: GUAIFENESIN 200MG/10ML SUGAR FREE UDC PO SCH ×4 (00:58→18:00)
[2021-10-14] MEDS: IPRATROPIUM BROMIDE (0.02%) 0.5MG/2.5ML NEB HHN SCH ×4 (02:17→20:30)
[2021-10-14 04:45] LABS: BASOPHILS % 0.4 % (0.0-2.0); EOSINOPHILS % 10.3 % (0.0-5.0); HEMATOCRIT. 32.6 % (42.0-52.0); HEMOGLOBIN. 10.6 g/dL (14.0-18.0); LYMPHOCYTES % 12.4 % (20.0-50.0); MEAN CORPUSCULAR VOLUME 82.7 fL (80.0-94.0); MEAN PLATELET VOLUME 10.7 fl (7.4-10.4); MONOCYTES % 9.6 % (2.0-8.0); NEUTROPHILS % 67.3 % (40.0-76.0); PLATELET 288 x1000/uL (130-400); RED BLOOD CELL COUNT 3.95 mill/uL (4.7-6.1); RED CELL DISTRIBUTION WIDTH 16.1 % (11.6-14.6)
[2021-10-14 04:53] LABS: CHLORIDE 108 mEq/L (98-107)
[2021-10-14 04:59] LABS: PHOSPHORUS 2.5 mg/dL (2.5-4.9)
[2021-10-14] MEDS: HYDRALAZINE 20MG/ML VIAL IV PRN (05:57)
[2021-10-14] MEDS: HYDRALAZINE HCL 100MG TABLET PO SCH ×3 (05:57→21:22)
[2021-10-14] MEDS: BLOOD SUGAR DIAGNOSTIC STRIP TEST SCH ×4 (07:50→21:22)
[2021-10-14] MEDS: INSULIN LISPRO 100 UNITS/ML SUBCUT SCH ×4 (07:50→21:00)
[2021-10-14] MEDS: PREDNISONE 20MG TABLET PO SCH (08:57)
[2021-10-14] MEDS: FUROSEMIDE 40MG/4ML VIAL IVP SCH (08:57)
[2021-10-14] MEDS: PANTOPRAZOLE SODIUM 40 MG/VIAL IV SCH ×2 (08:57→21:21)
[2021-10-14] MEDS: MULTIVITAMINS,THER W-MINERALS TABLET PO SCH (08:58)
[2021-10-14] MEDS: FOLIC ACID 1MG TABLET PO SCH (08:58)
[2021-10-14] MEDS: LOSARTAN POTASSIUM 100 MG TABLET PO SCH (08:59)
[2021-10-14] MEDS: ISOSORBIDE MONONITRATE 30MG TABLET SR 24HR PO SCH (08:59)
[2021-10-14] MEDS: POTASSIUM CHLORIDE 20MEQ/PACKET PO SCH (09:00)
[2021-10-14] MEDS: AMLODIPINE 10MG TABLET PO SCH ×2 (09:00→21:22)
[2021-10-14] MEDS: FERROUS SULFATE 325MG TABLET PO SCH ×3 (09:02→19:10)
[2021-10-14] MEDS ORDERED: POTASSIUM CHLORIDE 20MEQ TABLET SR PO NR (10:30)
[2021-10-15] VITALS (48 sets, daily range): BP systolic 50–177; BP diastolic 32–119
[2021-10-15] MEDS: GUAIFENESIN 200MG/10ML SUGAR FREE UDC PO SCH ×4 (00:13→17:28)
[2021-10-15] MEDS: IPRATROPIUM BROMIDE (0.02%) 0.5MG/2.5ML NEB HHN SCH ×4 (00:15→20:17)
[2021-10-15] MEDS: HYDRALAZINE HCL 100MG TABLET PO SCH ×3 (05:43→21:33)
[2021-10-15] MEDS: INSULIN LISPRO 100 UNITS/ML SUBCUT SCH ×4 (07:32→22:08)
[2021-10-15] MEDS: BLOOD SUGAR DIAGNOSTIC STRIP TEST SCH ×4 (07:33→21:00)
[2021-10-15] MEDS: METOPROLOL TARTRATE 5MG/5ML VIAL IV PRN (07:43)
[2021-10-15] MEDS: PANTOPRAZOLE SODIUM 40 MG/VIAL IV SCH ×2 (08:13→21:32)
[2021-10-15] MEDS: FERROUS SULFATE 325MG TABLET PO SCH ×3 (08:13→17:28)
[2021-10-15] MEDS: FUROSEMIDE 40MG/4ML VIAL IVP SCH (08:13)
[2021-10-15] MEDS: PREDNISONE 20MG TABLET PO SCH (08:13)
[2021-10-15] MEDS: MULTIVITAMINS,THER W-MINERALS TABLET PO SCH (08:13)
[2021-10-15] MEDS: FOLIC ACID 1MG TABLET PO SCH (08:14)
[2021-10-15] MEDS: AMLODIPINE 10MG TABLET PO SCH ×2 (08:14→21:33)
[2021-10-15] MEDS: POTASSIUM CHLORIDE 20MEQ/PACKET PO SCH (08:14)
[2021-10-15] MEDS: LOSARTAN POTASSIUM 100 MG TABLET PO SCH (08:14)
[2021-10-15] MEDS: ISOSORBIDE MONONITRATE 30MG TABLET SR 24HR PO SCH (08:14)
[2021-10-15 17:57] LABS: CHLORIDE 104 mEq/L (98-107)
[2021-10-15] MEDS: LORAZEPAM 2MG/ML CPJ IV PRN (21:33)
[2021-10-16] VITALS (12 sets, daily range): BP systolic 114–160; BP diastolic 57–123
[2021-10-16] MEDS: GUAIFENESIN 200MG/10ML SUGAR FREE UDC PO SCH ×5 (00:23→23:49)
[2021-10-16] MEDS: IPRATROPIUM BROMIDE (0.02%) 0.5MG/2.5ML NEB HHN SCH ×4 (02:19→19:49)
[2021-10-16] MEDS: HYDRALAZINE HCL 100MG TABLET PO SCH ×3 (05:16→21:06)
[2021-10-16 06:29] LABS: BASOPHILS % 1.1 % (0.0-2.0); EOSINOPHILS % 2.7 % (0.0-5.0); HEMOGLOBIN. 10.8 g/dL (14.0-18.0); LYMPHOCYTES % 14.7 % (20.0-50.0); MEAN CORPUSCULAR HEMOGLOBIN 26.9 pg (28.0-32.0); MEAN CORPUSCULAR VOLUME 82.5 fL (80.0-94.0); MEAN PLATELET VOLUME 11.2 fl (7.4-10.4); MONOCYTES % 11.1 % (2.0-8.0); NEUTROPHILS % 70.4 % (40.0-76.0); PLATELET 271 x1000/uL (130-400); RED CELL DISTRIBUTION WIDTH 16.4 % (11.6-14.6)
[2021-10-16] MEDS: INSULIN LISPRO 100 UNITS/ML SUBCUT SCH ×4 (07:30→20:27)
[2021-10-16 07:37] LABS: CHLORIDE 105 mEq/L (98-107)
[2021-10-16 07:45] LABS: PHOSPHORUS 2.3 mg/dL (2.5-4.9)
[2021-10-16] MEDS: BLOOD SUGAR DIAGNOSTIC STRIP TEST SCH ×4 (07:58→20:28)
[2021-10-16] MEDS: FUROSEMIDE 40MG/4ML VIAL IVP SCH (08:09)
[2021-10-16] MEDS: ISOSORBIDE MONONITRATE 30MG TABLET SR 24HR PO SCH (08:10)
[2021-10-16] MEDS: LOSARTAN POTASSIUM 100 MG TABLET PO SCH (08:10)
[2021-10-16] MEDS: FOLIC ACID 1MG TABLET PO SCH (08:10)
[2021-10-16] MEDS: FERROUS SULFATE 325MG TABLET PO SCH ×3 (08:10→17:14)
[2021-10-16] MEDS: POTASSIUM CHLORIDE 20MEQ/PACKET PO SCH (08:10)
[2021-10-16] MEDS: MULTIVITAMINS,THER W-MINERALS TABLET PO SCH (08:10)
[2021-10-16] MEDS: AMLODIPINE 10MG TABLET PO SCH ×2 (08:10→20:26)
[2021-10-16] MEDS: PREDNISONE 20MG TABLET PO SCH (08:10)
[2021-10-16] MEDS: PANTOPRAZOLE SODIUM 40 MG/VIAL IV SCH ×2 (09:00→20:24)
[2021-10-16] MEDS ORDERED: POTASSIUM PHOS,M-BASIC-D-BASIC 20 MMOL in DEXT 5% WATER 243.3333 ML IV NR (11:30)
[2021-10-17] VITALS (12 sets, daily range): BP systolic 113–152; BP diastolic 52–85
[2021-10-17] MEDS: IPRATROPIUM BROMIDE (0.02%) 0.5MG/2.5ML NEB HHN SCH ×5 (01:50→20:22)
[2021-10-17] MEDS: GUAIFENESIN 200MG/10ML SUGAR FREE UDC PO SCH ×4 (05:43→23:27)
[2021-10-17] MEDS: HYDRALAZINE HCL 100MG TABLET PO SCH ×3 (05:43→21:03)
[2021-10-17 06:28] LABS: BASOPHILS % 0.8 % (0.0-2.0); EOSINOPHILS % 2.9 % (0.0-5.0); HEMATOCRIT. 29.3 % (42.0-52.0); HEMOGLOBIN. 9.8 g/dL (14.0-18.0); LYMPHOCYTES % 15.1 % (20.0-50.0); MEAN CORPUSCULAR HEMOGLOBIN 27.8 pg (28.0-32.0); MEAN CORPUSCULAR VOLUME 83.1 fL (80.0-94.0); MEAN PLATELET VOLUME 10.7 fl (7.4-10.4); MONOCYTES % 10.5 % (2.0-8.0); NEUTROPHILS % 70.7 % (40.0-76.0); PLATELET 268 x1000/uL (130-400); RED BLOOD CELL COUNT 3.53 mill/uL (4.7-6.1); RED CELL DISTRIBUTION WIDTH 16.1 % (11.6-14.6)
[2021-10-17] MEDS: INSULIN LISPRO 100 UNITS/ML SUBCUT SCH ×4 (07:30→21:00)
[2021-10-17] MEDS: BLOOD SUGAR DIAGNOSTIC STRIP TEST SCH ×4 (08:15→20:59)
[2021-10-17] MEDS: POTASSIUM CHLORIDE 20MEQ/PACKET PO SCH (08:34)
[2021-10-17] MEDS: ISOSORBIDE MONONITRATE 30MG TABLET SR 24HR PO SCH (08:34)
[2021-10-17] MEDS: PANTOPRAZOLE SODIUM 40 MG/VIAL IV SCH ×2 (08:34→20:57)
[2021-10-17] MEDS: LOSARTAN POTASSIUM 100 MG TABLET PO SCH (08:34)
[2021-10-17] MEDS: PREDNISONE 20MG TABLET PO SCH (08:35)
[2021-10-17] MEDS: FUROSEMIDE 40MG/4ML VIAL IVP SCH (08:35)
[2021-10-17] MEDS: MULTIVITAMINS,THER W-MINERALS TABLET PO SCH (08:35)
[2021-10-17] MEDS: FOLIC ACID 1MG TABLET PO SCH (08:35)
[2021-10-17] MEDS: AMLODIPINE 10MG TABLET PO SCH ×2 (08:35→20:59)
[2021-10-17] MEDS: FERROUS SULFATE 325MG TABLET PO SCH ×3 (08:35→17:28)
[2021-10-17 08:52] LABS: CHLORIDE 105 mEq/L (98-107)
[2021-10-17 09:05] LABS: PHOSPHORUS 2.9 mg/dL (2.5-4.9)
[2021-10-17] MEDS ORDERED: MAGNESIUM 2 G PREMIX 50 ML IV NR (12:00)
[2021-10-18] VITALS (9 sets, daily range): BP systolic 118–145; BP diastolic 53–75
[2021-10-18] MEDS: GUAIFENESIN 200MG/10ML SUGAR FREE UDC PO SCH ×3 (05:15→17:52)
[2021-10-18] MEDS: HYDRALAZINE HCL 100MG TABLET PO SCH ×3 (05:15→21:38)
[2021-10-18] MEDS: BLOOD SUGAR DIAGNOSTIC STRIP TEST SCH ×4 (07:30→21:12)
[2021-10-18] MEDS: INSULIN LISPRO 100 UNITS/ML SUBCUT SCH ×4 (07:30→21:00)
[2021-10-18 07:52] LABS: EOSINOPHILS % 1.8 % (0.0-5.0); HEMATOCRIT. 29.2 % (42.0-52.0); HEMOGLOBIN. 9.8 g/dL (14.0-18.0); LYMPHOCYTES % 13.1 % (20.0-50.0); MEAN CORPUSCULAR VOLUME 83.3 fL (80.0-94.0); MEAN PLATELET VOLUME 10.5 fl (7.4-10.4); MONOCYTES % 11.6 % (2.0-8.0); NEUTROPHILS % 72.5 % (40.0-76.0); PLATELET 262 x1000/uL (130-400); RED CELL DISTRIBUTION WIDTH 16.8 % (11.6-14.6)
[2021-10-18 07:59] LABS: CHLORIDE 106 mEq/L (98-107)
[2021-10-18] MEDS: POTASSIUM CHLORIDE 20MEQ/PACKET PO SCH (08:22)
[2021-10-18] MEDS: PANTOPRAZOLE SODIUM 40 MG/VIAL IV SCH ×2 (08:22→21:38)
[2021-10-18] MEDS: FUROSEMIDE 40MG/4ML VIAL IVP SCH (08:22)
[2021-10-18] MEDS: ISOSORBIDE MONONITRATE 30MG TABLET SR 24HR PO SCH (08:22)
[2021-10-18] MEDS: AMLODIPINE 10MG TABLET PO SCH ×2 (08:23→21:38)
[2021-10-18] MEDS: PREDNISONE 20MG TABLET PO SCH (08:23)
[2021-10-18] MEDS: LOSARTAN POTASSIUM 100 MG TABLET PO SCH (08:23)
[2021-10-18] MEDS: FOLIC ACID 1MG TABLET PO SCH (08:23)
[2021-10-18] MEDS: FERROUS SULFATE 325MG TABLET PO SCH ×3 (08:23→17:52)
[2021-10-18] MEDS: MULTIVITAMINS,THER W-MINERALS TABLET PO SCH (08:23)
[2021-10-18] MEDS: IPRATROPIUM BROMIDE (0.02%) 0.5MG/2.5ML NEB HHN SCH ×3 (09:13→20:23)
[2021-10-18] MEDS ORDERED: POTASSIUM CHLORIDE 20MEQ/PACKET PO SCH (10:30)
[2021-10-18] MEDS ORDERED: MAGNESIUM 1 G PREMIX 100 ML IV SCH (12:00)
[2021-10-19] VITALS (8 sets, daily range): BP systolic 105–149; BP diastolic 56–75
[2021-10-19] MEDS: IPRATROPIUM BROMIDE (0.02%) 0.5MG/2.5ML NEB HHN SCH ×5 (00:33→20:56)
[2021-10-19] MEDS: GUAIFENESIN 200MG/10ML SUGAR FREE UDC PO SCH ×5 (00:42→23:19)
[2021-10-19] MEDS: HYDRALAZINE HCL 100MG TABLET PO SCH ×3 (05:18→20:32)
[2021-10-19 06:01] LABS: EOSINOPHILS % 0.4 % (0.0-5.0); HEMATOCRIT. 30.1 % (42.0-52.0); HEMOGLOBIN. 10.3 g/dL (14.0-18.0); MEAN CORPUSCULAR HEMOGLOBIN 28.2 pg (28.0-32.0); MEAN CORPUSCULAR VOLUME 82.4 fL (80.0-94.0); MEAN PLATELET VOLUME 10.5 fl (7.4-10.4); MONOCYTES % 11.5 % (2.0-8.0); NEUTROPHILS % 74.1 % (40.0-76.0); PLATELET 251 x1000/uL (130-400); RED BLOOD CELL COUNT 3.65 mill/uL (4.7-6.1); RED CELL DISTRIBUTION WIDTH 16.6 % (11.6-14.6)
[2021-10-19 06:19] LABS: CHLORIDE 105 mEq/L (98-107)
[2021-10-19 06:40] LABS: PHOSPHORUS 2.2 mg/dL (2.5-4.9)
[2021-10-19] MEDS: BLOOD SUGAR DIAGNOSTIC STRIP TEST SCH ×4 (07:30→20:32)
[2021-10-19] MEDS: INSULIN LISPRO 100 UNITS/ML SUBCUT SCH ×4 (07:30→20:32)
[2021-10-19] MEDS: FUROSEMIDE 40MG/4ML VIAL IVP SCH (08:44)
[2021-10-19] MEDS: PREDNISONE 20MG TABLET PO SCH (08:44)
[2021-10-19] MEDS: AMLODIPINE 10MG TABLET PO SCH ×2 (08:44→20:31)
[2021-10-19] MEDS: PANTOPRAZOLE SODIUM 40 MG/VIAL IV SCH ×2 (08:44→20:31)
[2021-10-19] MEDS: POTASSIUM CHLORIDE 20MEQ/PACKET PO SCH (08:45)
[2021-10-19] MEDS: FERROUS SULFATE 325MG TABLET PO SCH ×3 (08:45→17:16)
[2021-10-19] MEDS: LOSARTAN POTASSIUM 100 MG TABLET PO SCH (08:45)
[2021-10-19] MEDS: MULTIVITAMINS,THER W-MINERALS TABLET PO SCH (08:45)
[2021-10-19] MEDS: ISOSORBIDE MONONITRATE 30MG TABLET SR 24HR PO SCH (08:45)
[2021-10-19] MEDS: FOLIC ACID 1MG TABLET PO SCH (08:45)
[2021-10-19] MEDS ORDERED: POTASSIUM PHOS,M-BASIC-D-BASIC 20 MMOL in DEXT 5% WATER 243.3333 ML IV ONE (11:00)
[2021-10-20] VITALS (7 sets, daily range): BP systolic 105–144; BP diastolic 54–66
[2021-10-20] MEDS: HYDRALAZINE HCL 100MG TABLET PO SCH ×3 (05:29→22:34)
[2021-10-20] MEDS: GUAIFENESIN 200MG/10ML SUGAR FREE UDC PO SCH ×3 (05:29→17:00)
[2021-10-20] MEDS: INSULIN LISPRO 100 UNITS/ML SUBCUT SCH ×4 (07:04→21:12)
[2021-10-20] MEDS: BLOOD SUGAR DIAGNOSTIC STRIP TEST SCH ×4 (07:04→21:06)
[2021-10-20 09:34] LABS: BASOPHILS % 1.1 % (0.0-2.0); EOSINOPHILS % 0.9 % (0.0-5.0); HEMATOCRIT. 29.8 % (42.0-52.0); HEMOGLOBIN. 10.1 g/dL (14.0-18.0); LYMPHOCYTES % 16.5 % (20.0-50.0); MEAN CORPUSCULAR VOLUME 82.8 fL (80.0-94.0); MEAN PLATELET VOLUME 10.3 fl (7.4-10.4); MONOCYTES % 10.2 % (2.0-8.0); NEUTROPHILS % 71.3 % (40.0-76.0); PLATELET 242 x1000/uL (130-400); RED CELL DISTRIBUTION WIDTH 17.2 % (11.6-14.6)
[2021-10-20 09:44] LABS: CHLORIDE 106 mEq/L (98-107)
[2021-10-20 09:52] LABS: PHOSPHORUS 3.3 mg/dL (2.5-4.9)
[2021-10-20] MEDS: ISOSORBIDE MONONITRATE 30MG TABLET SR 24HR PO SCH (10:00)
[2021-10-20] MEDS: POTASSIUM CHLORIDE 20MEQ/PACKET PO SCH (10:00)
[2021-10-20] MEDS: FERROUS SULFATE 325MG TABLET PO SCH ×3 (10:01→17:00)
[2021-10-20] MEDS: AMLODIPINE 10MG TABLET PO SCH ×2 (10:01→21:05)
[2021-10-20] MEDS: MULTIVITAMINS,THER W-MINERALS TABLET PO SCH (10:01)
[2021-10-20] MEDS: FOLIC ACID 1MG TABLET PO SCH (10:01)
[2021-10-20] MEDS: PREDNISONE 20MG TABLET PO SCH (10:01)
[2021-10-20] MEDS: LOSARTAN POTASSIUM 100 MG TABLET PO SCH (10:01)
[2021-10-20] MEDS: FUROSEMIDE 40MG/4ML VIAL IVP SCH (10:02)
[2021-10-20] MEDS: PANTOPRAZOLE SODIUM 40 MG/VIAL IV SCH ×2 (10:02→21:05)
[2021-10-20] MEDS: IPRATROPIUM BROMIDE (0.02%) 0.5MG/2.5ML NEB HHN SCH ×3 (10:30→22:06)
[2021-10-21] VITALS: BP 132/62
[2021-10-21] MEDS: GUAIFENESIN 200MG/10ML SUGAR FREE UDC PO SCH ×4 (00:55→18:09)
[2021-10-21] MEDS: IPRATROPIUM BROMIDE (0.02%) 0.5MG/2.5ML NEB HHN SCH ×4 (02:02→20:52)
[2021-10-21 04:00] VITALS: BP 128/62
[2021-10-21 05:26] LABS: BASOPHILS % 0.6 % (0.0-2.0); EOSINOPHILS % 0.4 % (0.0-5.0); HEMATOCRIT. 30.1 % (42.0-52.0); LYMPHOCYTES % 16.7 % (20.0-50.0); MEAN CORPUSCULAR HEMOGLOBIN 27.7 pg (28.0-32.0); MEAN CORPUSCULAR VOLUME 83.5 fL (80.0-94.0); MEAN PLATELET VOLUME 10.1 fl (7.4-10.4); MONOCYTES % 11.6 % (2.0-8.0); NEUTROPHILS % 70.7 % (40.0-76.0); PLATELET 231 x1000/uL (130-400); RED BLOOD CELL COUNT 3.61 mill/uL (4.7-6.1)
[2021-10-21 05:35] LABS: CHLORIDE 106 mEq/L (98-107)
[2021-10-21] MEDS: HYDRALAZINE HCL 100MG TABLET PO SCH ×3 (06:11→21:59)
[2021-10-21] MEDS: BLOOD SUGAR DIAGNOSTIC STRIP TEST SCH ×4 (06:12→20:52)
[2021-10-21] MEDS: INSULIN LISPRO 100 UNITS/ML SUBCUT SCH ×4 (06:20→21:00)
[2021-10-21] MEDS: FERROUS SULFATE 325MG TABLET PO SCH ×3 (06:45→18:09)
[2021-10-21 08:00] VITALS: BP 136/63
[2021-10-21] MEDS: FUROSEMIDE 40MG/4ML VIAL IVP SCH (09:07)
[2021-10-21] MEDS: PANTOPRAZOLE SODIUM 40 MG/VIAL IV SCH ×2 (09:07→20:52)
[2021-10-21] MEDS: LOSARTAN POTASSIUM 100 MG TABLET PO SCH (09:08)
[2021-10-21] MEDS: MULTIVITAMINS,THER W-MINERALS TABLET PO SCH (09:08)
[2021-10-21] MEDS: FOLIC ACID 1MG TABLET PO SCH (09:08)
[2021-10-21] MEDS: ISOSORBIDE MONONITRATE 30MG TABLET SR 24HR PO SCH (09:08)
[2021-10-21] MEDS: POTASSIUM CHLORIDE 20MEQ/PACKET PO SCH (09:08)
[2021-10-21] MEDS: AMLODIPINE 10MG TABLET PO SCH ×2 (09:08→20:52)
[2021-10-21] MEDS: PREDNISONE 20MG TABLET PO SCH (09:08)
[2021-10-21 12:00] VITALS: BP 124/55
[2021-10-21 16:00] VITALS: BP 132/60
[2021-10-21 20:00] VITALS: BP 123/58
[2021-10-22] VITALS: BP 140/60
[2021-10-22] MEDS: IPRATROPIUM BROMIDE (0.02%) 0.5MG/2.5ML NEB HHN SCH ×2 (02:12→07:35)
[2021-10-22 04:00] VITALS: BP 145/65
[2021-10-22] MEDS: GUAIFENESIN 200MG/10ML SUGAR FREE UDC PO SCH ×3 (06:22→17:08)
[2021-10-22] MEDS: HYDRALAZINE HCL 100MG TABLET PO SCH ×3 (06:25→21:55)
[2021-10-22] MEDS: BLOOD SUGAR DIAGNOSTIC STRIP TEST SCH ×4 (06:25→21:04)
[2021-10-22] MEDS: INSULIN LISPRO 100 UNITS/ML SUBCUT SCH ×4 (06:25→21:00)
[2021-10-22] MEDS: FERROUS SULFATE 325MG TABLET PO SCH ×3 (06:42→17:08)
[2021-10-22 07:33] LABS: CHLORIDE 106 mEq/L (98-107)
[2021-10-22 07:39] LABS: PHOSPHORUS 3.2 mg/dL (2.5-4.9)
[2021-10-22 07:50] LABS: BASOPHILS % 1.4 % (0.0-2.0); EOSINOPHILS % 0.5 % (0.0-5.0); HEMATOCRIT. 31.4 % (42.0-52.0); HEMOGLOBIN. 10.5 g/dL (14.0-18.0); LYMPHOCYTES % 18.9 % (20.0-50.0); MEAN CORPUSCULAR HEMOGLOBIN 27.5 pg (28.0-32.0); MEAN PLATELET VOLUME 9.9 fl (7.4-10.4); MONOCYTES % 12.2 % (2.0-8.0); PLATELET 224 x1000/uL (130-400); RED BLOOD CELL COUNT 3.83 mill/uL (4.7-6.1)
[2021-10-22 08:00] VITALS: BP 128/59
[2021-10-22] MEDS: PANTOPRAZOLE SODIUM 40 MG/VIAL IV SCH ×2 (08:31→21:03)
[2021-10-22] MEDS: PREDNISONE 20MG TABLET PO SCH (08:31)
[2021-10-22] MEDS: POTASSIUM CHLORIDE 20MEQ/PACKET PO SCH (08:31)
[2021-10-22] MEDS: FUROSEMIDE 40MG/4ML VIAL IVP SCH (08:31)
[2021-10-22] MEDS: AMLODIPINE 10MG TABLET PO SCH ×2 (08:31→21:03)
[2021-10-22] MEDS: FOLIC ACID 1MG TABLET PO SCH (08:31)
[2021-10-22] MEDS: LOSARTAN POTASSIUM 100 MG TABLET PO SCH (08:31)
[2021-10-22] MEDS: ISOSORBIDE MONONITRATE 30MG TABLET SR 24HR PO SCH (08:32)
[2021-10-22] MEDS ORDERED: IPRATROPIUM BROMIDE (0.02%) 0.5MG/2.5ML NEB HHN PRN (09:45)
[2021-10-22] MEDS ORDERED: POTASSIUM CHLORIDE 20MEQ TABLET SR PO NR (09:45)
[2021-10-22 12:00] VITALS: BP 104/52
[2021-10-22 16:00] VITALS: BP 121/52
[2021-10-22 20:00] VITALS: BP 118/56
[2021-10-23] VITALS (7 sets, daily range): BP systolic 106–130; BP diastolic 52–67
[2021-10-23] MEDS: GUAIFENESIN 200MG/10ML SUGAR FREE UDC PO SCH ×4 (00:23→17:11)
[2021-10-23] MEDS: HYDRALAZINE HCL 100MG TABLET PO SCH ×3 (05:36→23:16)
[2021-10-23 05:41] LABS: BASOPHILS % 1.3 % (0.0-2.0); EOSINOPHILS % 0.5 % (0.0-5.0); HEMATOCRIT. 29.9 % (42.0-52.0); LYMPHOCYTES % 18.8 % (20.0-50.0); MEAN CORPUSCULAR HEMOGLOBIN 27.8 pg (28.0-32.0); MEAN CORPUSCULAR VOLUME 83.3 fL (80.0-94.0); MEAN PLATELET VOLUME 9.8 fl (7.4-10.4); MONOCYTES % 9.7 % (2.0-8.0); NEUTROPHILS % 69.7 % (40.0-76.0); PLATELET 188 x1000/uL (130-400); RED BLOOD CELL COUNT 3.59 mill/uL (4.7-6.1); RED CELL DISTRIBUTION WIDTH 16.9 % (11.6-14.6)
[2021-10-23] MEDS: FERROUS SULFATE 325MG TABLET PO SCH (06:41)
[2021-10-23] MEDS: BLOOD SUGAR DIAGNOSTIC STRIP TEST SCH ×4 (06:42→20:43)
[2021-10-23] MEDS: INSULIN LISPRO 100 UNITS/ML SUBCUT SCH ×4 (06:42→20:51)
[2021-10-23 07:03] LABS: CHLORIDE 106 mEq/L (98-107)
[2021-10-23 07:13] LABS: PHOSPHORUS 3.1 mg/dL (2.5-4.9)
[2021-10-23] MEDS: AMLODIPINE 10MG TABLET PO SCH ×2 (08:18→20:42)
[2021-10-23] MEDS: FUROSEMIDE 40MG TABLET PO SCH (08:35)
[2021-10-23] MEDS: POTASSIUM CHLORIDE 20MEQ/PACKET PO SCH (08:35)
[2021-10-23] MEDS: PREDNISONE 20MG TABLET PO SCH (08:35)
[2021-10-23] MEDS: ISOSORBIDE MONONITRATE 60MG TABLET SR 24HR PO SCH (08:35)
[2021-10-23] MEDS: PANTOPRAZOLE SODIUM 40 MG/VIAL IV SCH ×2 (08:35→20:43)
[2021-10-23] MEDS: LOSARTAN POTASSIUM 100 MG TABLET PO SCH (08:35)
[2021-10-23] MEDS ORDERED: MAGNESIUM 1 G PREMIX 100 ML IV ONE (12:00)
[2021-10-23] MEDS ORDERED: ACETAMINOPHEN 325MG TABLET PO PRN (23:15)
[2021-10-24] MEDS: GUAIFENESIN 200MG/10ML SUGAR FREE UDC PO SCH ×5 (00:06→23:15)
[2021-10-24 04:00] VITALS: BP 123/61
[2021-10-24] MEDS: HYDRALAZINE HCL 100MG TABLET PO SCH ×3 (05:42→23:15)
[2021-10-24] MEDS: BLOOD SUGAR DIAGNOSTIC STRIP TEST SCH ×4 (05:43→20:13)
[2021-10-24] MEDS: INSULIN LISPRO 100 UNITS/ML SUBCUT SCH ×4 (05:56→20:13)
[2021-10-24 08:00] VITALS: BP 143/65
[2021-10-24] MEDS: PANTOPRAZOLE SODIUM 40 MG/VIAL IV SCH ×2 (09:42→20:12)
[2021-10-24] MEDS: PREDNISONE 20MG TABLET PO SCH (09:42)
[2021-10-24] MEDS: AMLODIPINE 10MG TABLET PO SCH ×2 (09:42→20:12)
[2021-10-24] MEDS: ISOSORBIDE MONONITRATE 60MG TABLET SR 24HR PO SCH (09:42)
[2021-10-24] MEDS: FUROSEMIDE 40MG TABLET PO SCH (09:42)
[2021-10-24] MEDS: LOSARTAN POTASSIUM 100 MG TABLET PO SCH (09:42)
[2021-10-24] MEDS: POTASSIUM CHLORIDE 20MEQ/PACKET PO SCH (09:43)
[2021-10-24 12:00] VITALS: BP 101/54
[2021-10-24 16:00] VITALS: BP 109/56
[2021-10-24 20:00] VITALS: BP 138/60
[2021-10-24 23:20] VITALS: BP 131/67
[2021-10-25 04:00] VITALS: BP 147/78
[2021-10-25] MEDS: BLOOD SUGAR DIAGNOSTIC STRIP TEST SCH ×4 (05:38→21:06)
[2021-10-25] MEDS: HYDRALAZINE HCL 100MG TABLET PO SCH ×4 (05:38→21:07)
[2021-10-25] MEDS: GUAIFENESIN 200MG/10ML SUGAR FREE UDC PO SCH ×3 (05:38→17:06)
[2021-10-25] MEDS: INSULIN LISPRO 100 UNITS/ML SUBCUT SCH ×4 (05:51→21:00)
[2021-10-25 08:15] VITALS: BP 104/68
[2021-10-25] MEDS: PANTOPRAZOLE SODIUM 40 MG/VIAL IV SCH (08:48)
[2021-10-25] MEDS: FUROSEMIDE 40MG TABLET PO SCH (08:48)
[2021-10-25] MEDS: PREDNISONE 20MG TABLET PO SCH (08:48)
[2021-10-25] MEDS: ISOSORBIDE MONONITRATE 60MG TABLET SR 24HR PO SCH (08:49)
[2021-10-25] MEDS: AMLODIPINE 10MG TABLET PO SCH ×2 (08:49→21:07)
[2021-10-25] MEDS: LOSARTAN POTASSIUM 100 MG TABLET PO SCH (08:49)
[2021-10-25] MEDS: POTASSIUM CHLORIDE 20MEQ/PACKET PO SCH (09:45)
[2021-10-25 12:43] VITALS: BP 128/68
[2021-10-25 15:30] VITALS: BP 140/64
[2021-10-25 20:00] VITALS: BP 141/68
[2021-10-26] VITALS: BP 139/80
[2021-10-26] MEDS: GUAIFENESIN 200MG/10ML SUGAR FREE UDC PO SCH ×3 (00:10→12:36)
[2021-10-26 04:00] VITALS: BP 153/69
[2021-10-26] MEDS: HYDRALAZINE HCL 100MG TABLET PO SCH (05:48)
[2021-10-26 06:18] LABS: INR 1.1; PROTHROMBIN TIME 11.9 sec (9.6-11.0)
[2021-10-26 06:31] LABS: BASOPHILS % 1.2 % (0.0-2.0); HEMATOCRIT. 30.7 % (42.0-52.0); HEMOGLOBIN. 10.5 g/dL (14.0-18.0); LYMPHOCYTES % 21.6 % (20.0-50.0); MEAN CORPUSCULAR HEMOGLOBIN 28.4 pg (28.0-32.0); MEAN CORPUSCULAR VOLUME 82.7 fL (80.0-94.0); MEAN PLATELET VOLUME 9.7 fl (7.4-10.4); NEUTROPHILS % 67.2 % (40.0-76.0); PLATELET 141 x1000/uL (130-400); RED BLOOD CELL COUNT 3.71 mill/uL (4.7-6.1); RED CELL DISTRIBUTION WIDTH 17.4 % (11.6-14.6)
[2021-10-26] MEDS: BLOOD SUGAR DIAGNOSTIC STRIP TEST SCH ×2 (06:36→12:29)
[2021-10-26] MEDS: INSULIN LISPRO 100 UNITS/ML SUBCUT SCH ×2 (06:36→12:10)
[2021-10-26 08:00] VITALS: BP 128/70
[2021-10-26] MEDS: POTASSIUM CHLORIDE 20MEQ/PACKET PO SCH (09:33)
[2021-10-26] MEDS: AMLODIPINE 10MG TABLET PO SCH (09:33)
[2021-10-26] MEDS: FUROSEMIDE 40MG TABLET PO SCH (09:33)
[2021-10-26] MEDS: PREDNISONE 20MG TABLET PO SCH (09:33)
[2021-10-26] MEDS: ISOSORBIDE MONONITRATE 60MG TABLET SR 24HR PO SCH (09:33)
[2021-10-26] MEDS: LOSARTAN POTASSIUM 100 MG TABLET PO SCH (09:33)
[2021-10-26 11:00] VITALS: BP 125/56
[2021-10-26 11:34] VITALS: BP 125/56
== END 2021-10-26 13:15 | DRG 870 ==
LOC: ER 17:02 → EDBD 22:18 → MICUSO 22:18 → CVICU 10-03 15:04 → 5EST 10-15 10:35 → 8WST 10-20 04:25
PROVIDERS: ADMIT Hospitalist; ATTEND Hospitalist
PROC: 5A1955Z Respiratory Ventilation, Greater than 96 Consecutive Hours (ICD-10-PCS; principal; 2021-09-24)
PROC: 02HV33Z Insertion of Infusion Device into Superior Vena Cava, Percutaneous Approach (ICD-10-PCS; 2021-09-24)
PROC: 0BH17EZ Insertion of Endotracheal Airway into Trachea, Via Natural or Artificial Opening (ICD-10-PCS; 2021-09-24)
PROC: 5A1223Z Performance of Cardiac Pacing, Continuous (ICD-10-PCS; 2021-10-03)
PROC: 02H63JZ Insertion of Pacemaker Lead into Right Atrium, Percutaneous Approach (ICD-10-PCS; 2021-10-03)
PROC: 5A09457 Assistance with Respiratory Ventilation, 24-96 Consecutive Hours, Continuous Positive Airway Pressure (ICD-10-PCS; 2021-10-08)
DX: A41.9 Sepsis, unspecified organism (principal); E43 Unspecified severe protein-calorie malnutrition; I21.4 Non-ST elevation (NSTEMI) myocardial infarction; I63.549 Cerebral infarction due to unspecified occlusion or stenosis of unspecified cerebellar artery; I50.21 Acute systolic (congestive) heart failure; J96.01 Acute respiratory failure with hypoxia; N17.0 Acute kidney failure with tubular necrosis; R65.21 Severe sepsis with septic shock; E87.1 Hypo-osmolality and hyponatremia; E87.2 Acidosis; G93.40 Encephalopathy, unspecified; I13.0 Hypertensive heart and chronic kidney disease with heart failure and stage 1 through stage 4 chronic kidney disease, or unspecified chronic kidney disease; E87.0 Hyperosmolality and hypernatremia; I42.9 Cardiomyopathy, unspecified; K92.2 Gastrointestinal hemorrhage, unspecified; M62.82 Rhabdomyolysis; G81.91 Hemiplegia, unspecified affecting right dominant side; D64.9 Anemia, unspecified; E83.51 Hypocalcemia; E87.6 Hypokalemia; K42.9 Umbilical hernia without obstruction or gangrene; N18.2 Chronic kidney disease, stage 2 (mild); I48.0 Paroxysmal atrial fibrillation; D69.6 Thrombocytopenia, unspecified; E78.5 Hyperlipidemia, unspecified; I25.10 Atherosclerotic heart disease of native coronary artery without angina pectoris; I49.1 Atrial premature depolarization; I45.5 Other specified heart block; Z20.822 Contact with and (suspected) exposure to COVID-19; K80.20 Calculus of gallbladder without cholecystitis without obstruction; N40.0 Benign prostatic hyperplasia without lower urinary tract symptoms; K74.60 Unspecified cirrhosis of liver; R74.01 Elevation of levels of liver transaminase levels; I49.5 Sick sinus syndrome; R13.12 Dysphagia, oropharyngeal phase; Z86.74 Personal history of sudden cardiac arrest; Z68.27 Body mass index [BMI] 27.0-27.9, adult
CPT/HCPCS: 31500; 33210; 36415; 36600; 70551; 71045; 71250; 74176; 76604; 76700; 76937; 78580; 80048; 80053; 80061; 80076; 80305; 80320; 81003; 82270; 82375; 82550; 82553; 82607; 82728; 82746; 82805; 82962; 83036; 83540; 83550; 83605; 83735; 83880; 84100; 84145; 84439; 84443; 84484; 85014; 85018; 85025; 85044; 85379; 87070; 87426; 92610; 93005; 93306; 93970; 94002; 94003; 94640; 94667; 97110; 97161; 97164; 97167; 97530; 99285; A6261; C1725; C1893; C9113; J0282; J0330; J0360; J0692; J1160; J1265; J1644; J1650; J1815; J1940; J2060; J2250; J2270; J2405; J2543; J2704; J2920; J2930; J3010; J3370; J3475; J3480; J3490; J7040; J7042; J7050; J7060; J7070; J7512; J7608; G0480